=== PATIENT | female | born 1980 | race Caucasian/White ===

== ENCOUNTER 2024-04-20 09:58 | Inpatient (IN) ==
[2024-04-20 10:54] LABS: Basophils # (auto) 0.06 K/uL (0.00-0.20); Basophils % (auto) 0.3 %; Hematocrit (blood only) 33.2 % (37.0-47.0); Hemoglobin 11.3 g/dl (12.0-16.0); Immature Granulocytes % (auto) 0.9 %; Lymphocytes # (auto) 2.07 K/uL (1.20-3.40); Mean Corpuscular Hemoglobin 30.2 pg (25.0-34.0); Mean Corpuscular Volume 88.8 fL (80.0-100.0); Mean Platelet Volume 9.7 fL (9.4-12.4); Monocytes # (auto) 1.16 K/uL (0.11-0.59); Monocytes % (auto) 5.1 %; Neutrophils # (auto) 19.47 K/uL (1.40-6.50); Neutrophils % (auto) 84.7 %; Platelet Count 690 K/uL (130-400); RDW Coefficient of Variation 13.2 % (11.5-14.5); RDW Standard Deviation 42.7 fL (36.4-46.3); Red Blood Count 3.74 M/uL (4.20-5.40); White Blood Count 22.96 K/ul (4.8-10.8)
[2024-04-20 11:15] LABS: Albumin Globulin Ratio 0.9 (0.9-2); Albumin Level 3.5 gm/dl (3.4-5.0); BUN Creatinine Ratio 14.3 (10-20); Bilirubin,Total 0.9 mg/dl (0.2-1.0); Creatinine Clr Calc Pharmacy 102.6 ml/min; Globulin 3.7 gm/dl (2.5-4.0); Potassium 3.4 mmol/L (3.5-5.1); Total Protein 7.2 gm/dl (6.0-8.3)
--- NOTE | 2024-04-20 11:21 | Emergency Department Note ---
Impression & Plan Pyelonephritis, Pericardial effusion, Hypokalemia, Multiple sclerosis ED Provider Note CHIEF COMPLAINT: "I don't feel good" HISTORY OF PRESENT ILLNESS: This 44-year-old female patient presents to the emergency department via private vehicle for evaluation of "I do not feel good". The patient states that for about a week, she has been feeling unwell. She states she has had a runny nose, body aches, chills, and a headache. She denies neck stiffness, but states the back of her neck feels very warm. She states that she has been unable to get warm today. She does report "MS symptoms" which she describes as bilateral arm and leg tingling and numbness. She states the symptoms have been chronic in nature. She denies any new MS symptoms. She states she has been very tired. She denies any cough or congestion. She does feel somewhat short of breath. She states she has been dizzy and lightheaded. No chest pain. She states she has some generalized abdominal cramping and developed vomiting yesterday. While yesterday was the first episode of vomiting she had experienced, there has been nausea throughout the past week. LMP was 2 weeks ago. Patient has a history of overactive bladder and states she is not currently taking her medication for this, but denies any other associated urinary frequency, hesitancy, dysuria, hematuria. Patient has been taking OTC cold medication without relief. Most recent dose was at midnight last night. She states she is also taking her Seroquel, Flexeril, and Lyrica. History provided by: Patient REVIEW OF SYSTEMS: A 10 system review of systems was performed with positives and pertinent negatives listed in the history of present illness. All other systems were reviewed and are negative. ALLERGIES: Haldol, aspirin, glucocorticoids, NSAIDs PHYSICAL EXAM: VITALS: Vitals are noted on the nurse's note and reviewed by myself. GENERAL: This is a 44-year-old female, in no acute distress, nondiaphoretic, well-developed well-nourished. SKIN: The skin was without rashes, erythema, edema, or bruising. There is no tenting of the skin. Capillary refill less than 2 seconds. HEAD: Normocephalic atraumatic. EARS: External auditory canals clear, tympanic membranes pearly cooper without erythema or effusion bilaterally. No hemotympanum. Negative saucedo sign EYES: Pupils equal round and reactive to light and accommodation. Conjunctivae without injection, sclerae without icterus. Extraocular movements intact. NOSE: Patent, turbinates without inflammation or discharge. No sinus tenderness. MOUTH: Mucous membranes moist. Tonsils are not enlarged. Pharynx without erythema or exudate. Uvula midline. Airway patent. Tongue does not deviate. NECK: Supple without nuchal rigidity. No lymphadenopathy. Cervical spine is nontender. No JVD. HEART: Regular rate and rhythm without murmurs gallops or rubs. LUNGS: Clear to auscultation bilaterally without wheezes, rales or rhonchi. No retractions or accessory muscle use. ABDOMEN: Positive bowel sounds x 4. Soft, nontender, without masses or organomegaly. Krishnamurthy sign negative. No guarding or rebound tenderness. MUSCULOSKELETAL: No muscle atrophy, erythema, or edema noted. Full range of motion without joint tenderness in all extremities. No tenderness to palpation. Normal gait. Strength 5/5 throughout. NEURO: Patient was alert and oriented to person place and time. No focal neurological deficits. An order was placed for continuous relationship specialist. The monitor showed a normal sinus rhythm at a ventricular rate of 98 bpm, per my interpretation. Imaging as interpreted by myself and the radiologist revealed acute bilateral pyelonephritis, with radiologist interpretation as above. I agree with the radiologist's findings as based upon my independent interpretation. EMERGENCY DEPARTMENT COURSE: The patient was seen and evaluated as above. The patient presents with nonspecific generalized illness. She has had a mild runny nose. She describes a fullness sensation when she breathes as well as some generalized abdominal discomfort. She has been nauseated but just started vomiting yesterday. She is afebrile but has had chills. Upon arrival, she was tachycardic and hypotensive. IV access was obtained, labs were drawn. Initial orders were placed by triage nursing staff. Additional orders were added by me once I evaluated the patient. Patient was medicated with IV fluids, Zofran. Labs reviewed. There is a concerning leukocytosis of 23,000. No the hemoglobin 11.3 and hematocrit 33.2. Platelet count is elevated at 690,000. Renal, hepatic function without significant concerning abnormality. Troponin 6.9. hCG negative. Procalcitonin 0.42. Urinalysis concerning for infection with blood, nitrites, leukocyte esterase, white blood cells, and bacteria. Respiratory bio fire testing is negative. Urine drug screen is pending at this time. Chest x-ray was completed and reviewed by myself and radiologist as noted. No acute findings. I discussed the case with my attending physician. Given the patient's complaints as well as the leukocytosis and unclear source of her illness, we did elect to perform imaging. The patient is complaining of a headache and in her neck. She is also complaining of a heavy sensation when she plays as well as some generalized abdominal pain. CT scan of the head, chest, abdomen, and pelvis were completed as noted. These were reviewed by myself radiologist and were concerning for acute pyelonephritis bilaterally. Patient was reassessed. She is continuing to complain of nausea and dry heaving. She was medicated with IV Zofran. The patient's blood pressure and heart rate have improved while in the emergency department after administration of IV fluids. Given the patient's presentation as well as findings of bilateral pyelonephritis and trace pericardial effusion/pleural effusions, I do recommend inpatient care. I discussed case with the airborne weapons technical manager. I discussed the case with KARLY Hendrickson with [facility] Hospitalist. She did agree to evaluate the patient for inpatient care. Please see hospitalist dictation regarding ongoing management care of this patient. Case was discussed with the attending physician. This visit is during a period of high volume and high acuity in the emergency department. I attest that I have personally reviewed the patient medication list. I attest that I have reviewed the patient's blood pressure and it was found to be low-normal. GCS: 15 In the evaluation and treatment of this patient the following differential diagnoses were entertained: Viral syndrome, otitis, pharyngitis, pneumonia, influenza, meningitis, urinary tract infection, sepsis, bacteremia, as well as other pathologies. The chart was completed utilizing [employer] Speech voice recognition software. Grammatical errors, random word insertions, pronoun errors, and incomplete sentences are an occasional consequence of this system due to software limitations, ambient noise, and hardware issues. Any formal questions or concerns about the content, text, or information contained within the body of this dictation should be directly addressed to the provider for clarification. Past Med/Surg History Problem List (Updated 04/20/24 @ 14:39 by Talia Hickman PA-C) Pericardial effusion (Acute) Multiple sclerosis (Acute) Pyelonephritis (Acute) Hypokalemia (Acute) Concern about STI in female without diagnosis (Acute) Medical History Transverse myelitis Hx of folliculitis Hx of drug abuse Schizophrenia in remission Cellulitis of abdominal wall Encounter for insertion of mirena IUD Hx of lipoma Tendinitis of left hand Degenerative disc disease Pinched nerve in neck Overactive bladder Nightmares Depression Anxiety Social History Smoking Status: Current every day smoker Tobacco Type: Cigarettes Cigarettes Per Day: 10; Hx Alcohol Use: No Hx Substance Use: Yes Prescribed Medications: Marijuana Preferred Language: Irish Communication Ability: Effective Beliefs That Will Affect Care: None Current Living Situation: Alone Feels Safe at Home: Yes Assistive Devices: None Allergies Allergies Allergy/AdvReac Type Severity Reaction Status Date / Time haloperidol [From Haldol] Allergy Severe Swelling Verified 12/02/23 18:54 of Lip/Tongue/Throat aspirin AdvReac Intermediate RINGING IN Verified 12/02/23 18:54 EARS Corticosteroids AdvReac Intermediate INJECTED Verified 12/02/23 18:54 (Glucocorticoids) JOINT BECAME SEVERELY SWOLLEN & STIFF NSAIDS (Non-Steroidal AdvReac Intermediate Redness of Verified 12/02/23 18:56 Anti-Inflamma Skin "FELT LIKE I WAS ON FIRE" Home Meds Home Medications Medication Instructions Recorded Confirmed acetaminophen 500 mg tablet 1,000 mg PO Q6H PRN Pain 05/19/19 12/02/23 (Tylenol Extra Strength) cetirizine 10 mg tablet (Zyrtec) 10 mg PO DAILY 05/19/19 12/02/23 docusate sodium 100 mg capsule 100 mg PO BID Constipation 05/19/19 12/02/23 ferrous sulfate 325 mg (65 mg 325 mg PO BID 05/19/19 12/02/23 iron) tablet (Iron (ferrous sulfate)) fesoterodine 8 mg tablet,extended 8 mg PO QAM 05/19/19 12/02/23 release 24 hr (Toviaz) fluticasone propionate 50 2 spray intranasal DAILY 05/19/19 12/02/23 mcg/actuation nasal spray,suspension (Flonase Allergy Relief) quetiapine 200 mg tablet (Seroquel) 200 mg PO HS 05/19/19 12/02/23 bisacodyl 5 mg tablet 5 mg PO DAILY PRN Constipation 05/23/23 12/02/23 cholecalciferol (vitamin D3) 50 50 mcg PO DAILY 05/23/23 12/02/23 mcg (2,000 unit) capsule (Vitamin D3) clindamycin phosphate 1 % topical 1 applic topical QAM 05/23/23 12/02/23 gel cyclobenzaprine 10 mg tablet 10 mg PO TID MUSCLE SPASMS 05/23/23 12/02/23 hydroxyzine HCl 25 mg tablet 25 mg PO DAILY PRN NEEDED 05/23/23 12/02/23 ibuprofen 600 mg tablet 600 mg PO Q8H PRN Pain 05/23/23 12/02/23 levonorgestrel 21 mcg/24 hr (up to 21 mcg intrauterine CONTINOUS 05/23/23 12/02/23 8 years) 52 mg intrauterine device (Mirena) ondansetron HCl 4 mg tablet 4 mg PO Q6H PRN NAUSEA/VOMITING 05/23/23 12/02/23 tretinoin 0.025 % topical cream 1 applic topical HS 05/23/23 12/02/23 (Avita) polyethylene glycol 3350 17 17 g PO DAILY PRN Constipation 12/02/23 12/02/23 gram/dose oral powder (Miralax) Previous Rx's Medication Instructions Recorded cyclobenzaprine 10 mg tablet 10 mg PO TID #30 tabs 03/10/24 hydroxyzine HCl 50 mg tablet 50 mg PO BID PRN itching #20 tabs 03/10/24 pregabalin 100 mg capsule 100 mg PO BID #20 caps 03/10/24 quetiapine 200 mg tablet 200 mg PO HS #10 tabs 03/10/24 Results & Data (ED) Vital Signs Vital Signs - 24 hr 04/20/24 10:07 04/20/24 10:08 04/20/24 10:34 Temperature 37 C Temperature Source Oral Pulse Rate 95 H 95 H Pulse Rate [Apical] 98 H Respiratory Rate 20 18 Respiratory Effort / Characteristics Non-Labored Spontaneous Non-Labored Spontaneous Respiratory Depth Normal Normal Blood Pressure 97/75 L Blood Pressure [Left Arm] 97/75 L Blood Pressure Mean 82 Blood Pressure Mean [Left Arm] 82 Blood Pressure Position Sitting Blood Pressure Position [Left Arm] Sitting Pulse Oximetry 97 98 Oxygen Delivery Method Room Air Room Air Sepsis Recent Fever Within 48 Hours Yes Sepsis New/Unexplained Change in Mental Status No Sepsis Action Taken by Nursing No Action Required 04/20/24 12:55 04/20/24 14:05 Temperature Temperature Source Pulse Rate 93 H Pulse Rate [Apical] 91 H Respiratory Rate 12 Respiratory Effort / Characteristics Non-Labored Respiratory Depth Normal Blood Pressure Blood Pressure [Left Arm] 104/61 Blood Pressure Mean Blood Pressure Mean [Left Arm] 75 Blood Pressure Position Blood Pressure Position [Left Arm] Pulse Oximetry 95 Oxygen Delivery Method Room Air Sepsis Recent Fever Within 48 Hours Sepsis New/Unexplained Change in Mental Status Sepsis Action Taken by Nursing Laboratory Data 04/20/24 10:20 04/20/24 10:20 Lab Results 04/20/24 04/20/24 04/20/24 Range/Units 10:07 10:20 11:48 WBC 22.96 H (4.8-10.8) K/ul RBC 3.74 L (4.20-5.40) M/uL Hgb 11.3 L (12.0-16.0) g/dl Hct 33.2 L (37.0-47.0) % MCV 88.8 (80.0-100.0) fL MCH 30.2 (25.0-34.0) pg MCHC 34.0 (32.0-36.0) g/dL RDW Std Deviation 42.7 (36.4-46.3) fL RDW Coeff of Renee 13.2 (11.5-14.5) % Plt Count 690 H (130-400) K/uL MPV 9.7 (9.4-12.4) fL Immature Gran % (Auto) 0.9 % Neut % (Auto) 84.7 % Lymph % (Auto) 9.0 % Ness % (Auto) 5.1 % Eos % (Auto) 0.0 % Baso % (Auto) 0.3 % Neut # (Auto) 19.47 H (1.40-6.50) K/uL Lymph # (Auto) 2.07 (1.20-3.40) K/uL Ness # (Auto) 1.16 H (0.11-0.59) K/uL Eos # (Auto) 0.00 (0.00-0.50) K/uL Baso # (Auto) 0.06 (0.00-0.20) K/uL Immature Gran # (Auto) 0.20 (0.01-0.20) K/uL APTT (21-31) Seconds PTT Ratio Sodium 133 L (136-145) mmol/L Potassium 3.4 L (3.5-5.1) mmol/L Chloride 98 (98-107) mmol/L Carbon Dioxide 22 (21-32) mmol/L Anion Gap 13 H (3-11) BUN 9 (6-23) mg/dl Creatinine 0.63 (0.6-1.2) mg/dl Est Cr Clr Drug Dosing 102.6 ml/min eGFR 110.73 BUN/Creatinine Ratio 14.3 (10-20) Glucose 92 (70-99(Fasting)) mg/dl Lactate (0.4-2.0) mmol/L Calcium 9.0 (8.6-10.3) mg/dl Magnesium (1.7-2.4) mg/dl Total Bilirubin 0.9 (0.2-1.0) mg/dl AST 14 (13-39) U/L ALT 26 (7-52) U/L Alkaline Phosphatase 185 H (34-104) U/L Troponin I High Sens (0-14) pg/ml Total Protein 7.2 (6.0-8.3) gm/dl Albumin 3.5 (3.4-5.0) gm/dl Globulin 3.7 (2.5-4.0) gm/dl Albumin/Globulin Ratio 0.9 (0.9-2) Procalcitonin (0-0.5) ng/ml HCG, Qual (Negative) Urine Color Dark Yellow Urine Appearance Turbid A (Clear) Urine pH 6.0 (4.5-7.5) Ur Specific Alsey 1.017 (1.000-1.030) Urine Protein 2+ H (Negative) Urine Glucose (UA) Negative (Negative) Urine Ketones 3+ H (Negative) Urine Blood Trace H (Negative) Urine Nitrite Positive A (Negative) Urine Bilirubin 1+ H (Negative) Urine Urobilinogen Positive H (Negative) Ur Leukocyte Esterase 2+ H (Negative) Urine WBC (Auto) >50 H (0-5) /hpf Urine RBC (Auto) 11-20 H (0-2) /hpf U Hyaline Cast (Auto) 3-5 H (0-2) /lpf U Epithel Cells (Auto) >20 H (0-2) /hpf Urine Bacteria (Auto) 4+ H (None Seen) Adenovirus (PCR) Not Detected (NotDetected) B. pertussis DNA (PCR) Not Detected (NotDetected) B.parapertussis DNA PCR Not Detected (NotDetected) C. pneumoniae DNA (PCR) Not Detected (NotDetected) Coronavirus OC43 (PCR) Not Detected (NotDetected) Coronavirus HKU1 (PCR) Not Detected (NotDetected) Coronavirus 229E (PCR) Not Detected (NotDetected) SARS-CoV-2 (PCR) Not Detected (NotDetected) Coronavirus NL63 (PCR) Not Detected (NotDetected) Human Metapneumovir PCR Not Detected (NotDetected) Influenza Type A (PCR) Not Detected (NotDetected) Influenza Type B (PCR) Not Detected (NotDetected) M. pneumoniae (PCR) Not Detected (NotDetected) Parainfluenza 1 (PCR) Not Detected (NotDetected) Parainfluenza 2 (PCR) Not Detected (NotDetected) Parainfluenza 3 (PCR) Not Detected (NotDetected) Parainfluenza 4 (PCR) Not Detected (NotDetected) RSV (PCR) Not Detected (NotDetected) Entero/Rhino (PCR) Not Detected (NotDetected) 04/20/24 04/20/24 Range/Units 11:52 11:56 WBC (4.8-10.8) K/ul RBC (4.20-5.40) M/uL Hgb (12.0-16.0) g/dl Hct (37.0-47.0) % MCV (80.0-100.0) fL MCH (25.0-34.0) pg MCHC (32.0-36.0) g/dL RDW Std Deviation (36.4-46.3) fL RDW Coeff of Renee (11.5-14.5) % Plt Count (130-400) K/uL MPV (9.4-12.4) fL Immature Gran % (Auto) % Neut % (Auto) % Lymph % (Auto) % Ness % (Auto) % Eos % (Auto) % Baso % (Auto) % Neut # (Auto) (1.40-6.50) K/uL Lymph # (Auto) (1.20-3.40) K/uL Ness # (Auto) (0.11-0.59) K/uL Eos # (Auto) (0.00-0.50) K/uL Baso # (Auto) (0.00-0.20) K/uL Immature Gran # (Auto) (0.01-0.20) K/uL APTT 35 H (21-31) Seconds PTT Ratio 1.3 Sodium (136-145) mmol/L Potassium (3.5-5.1) mmol/L Chloride (98-107) mmol/L Carbon Dioxide (21-32) mmol/L Anion Gap (3-11) BUN (6-23) mg/dl Creatinine (0.6-1.2) mg/dl Est Cr Clr Drug Dosing ml/min eGFR BUN/Creatinine Ratio (10-20) Glucose (70-99(Fasting)) mg/dl Lactate 1.3 (0.4-2.0) mmol/L Calcium (8.6-10.3) mg/dl Magnesium 1.8 (1.7-2.4) mg/dl Total Bilirubin (0.2-1.0) mg/dl AST (13-39) U/L ALT (7-52) U/L Alkaline Phosphatase (34-104) U/L Troponin I High Sens 6.9 (0-14) pg/ml Total Protein (6.0-8.3) gm/dl Albumin (3.4-5.0) gm/dl Globulin (2.5-4.0) gm/dl Albumin/Globulin Ratio (0.9-2) Procalcitonin 0.32 (0-0.5) ng/ml HCG, Qual Negative (Negative) Urine Color Urine Appearance (Clear) Urine pH (4.5-7.5) Ur Specific [place]sey (1.000-1.030) Urine Protein (Negative) Urine Glucose (UA) (Negative) Urine Ketones (Negative) Urine Blood (Negative) Urine Nitrite (Negative) Urine Bilirubin (Negative) Urine Urobilinogen (Negative) Ur Leukocyte Esterase (Negative) Urine WBC (Auto) (0-5) /hpf Urine RBC (Auto) (0-2) /hpf U Hyaline Cast (Auto) (0-2) /lpf U Epithel Cells (Auto) (0-2) /hpf Urine Bacteria (Auto) (None Seen) Adenovirus (PCR) (NotDetected) B. pertussis DNA (PCR) (NotDetected) B.parapertussis DNA PCR (NotDetected) C. pneumoniae DNA (PCR) (NotDetected) Coronavirus OC43 (PCR) (NotDetected) Coronavirus HKU1 (PCR) (NotDetected) Coronavirus 229E (PCR) (NotDetected) SARS-CoV-2 (PCR) (NotDetected) Coronavirus NL63 (PCR) (NotDetected) Human Metapneumovir PCR (NotDetected) Influenza Type A (PCR) (NotDetected) Influenza Type B (PCR) (NotDetected) M. pneumoniae (PCR) (NotDetected) Parainfluenza 1 (PCR) (NotDetected) Parainfluenza 2 (PCR) (NotDetected) Parainfluenza 3 (PCR) (NotDetected) Parainfluenza 4 (PCR) (NotDetected) RSV (PCR) (NotDetected) Entero/Rhino (PCR) (NotDetected) Administered Medications Discontinued Medications Sodium Chloride (Nss) 1,000 mls @ 999 mls/hr IV .Q1H1M ONE Stop: 04/20/24 12:16 Last Infusion: 04/20/24 14:12 Dose: Infused Documented By: Admin: 04/20/24 11:51 Dose: 999 mls/hr Documented By: ALEKS Cefepime HCl (Maxipime 2000mg) 2,000 mg in 20 mls @ 5 mls/min IV NOW STA; Protocol Stop: 04/20/24 11:50 Last Admin: 04/20/24 13:02 Dose: 5 mls/min Documented By: ALEKS Ioversol (Optiray 320 125ml) 120 ml IV ONCE ONE Stop: 12/16/24 12:28 Last Admin: 04/20/24 12:27 Dose: 120 ml Documented By: WANG Ondansetron HCl (Ondansetron Inj 2 Mg/Ml 2 Ml Vial) 4 mg IV NOW STA Stop: 04/20/24 11:23 Last Admin: 04/20/24 11:52 Dose: 4 mg Documented By: ALEKS Ondansetron HCl (Ondansetron Inj 2 Mg/Ml 2 Ml Vial) 4 mg IV NOW STA Stop: 04/20/24 13:18 Last Admin: 04/20/24 13:21 Dose: 4 mg Documented By: ALEKS Imaging Data Radiologist's Impression: Chest X-Ray 04/20/24 10:49 XR chest 1V portable HISTORY: 44 years-old Female pain with deep breathing, illness COMPARISON: 03/10/2024 TECHNIQUE: AP view the chest FINDINGS: Cardiac mediastinal and hilar silhouettes are within normal limits. No pneumothorax, pleural effusion or airspace consolidation. Bones appear grossly intact. Cervical spinal fusion hardware. IMPRESSION: No acute process. ACT 112: Negative or not required by law. The above report was generated using voice recognition software. It may contain grammatical, syntax or spelling errors. Electronically signed by: Michael Crespo M.D. 04/20/2024 11:23 AM Abdomen/Pelvis CT 04/20/24 11:37 CT OF THE ABDOMEN AND PELVIS WITH CONTRAST CLINICAL HISTORY: Generalized abdominal pain, illness. COMPARISON STUDY: CT of the abdomen pelvis December 02, 2023. TECHNIQUE: Following IV administration of 120 mL of Optiray, axial images of the abdomen and pelvis were obtained from the lung bases to the proximal femurs. Images were reviewed in the axial, sagittal, and coronal planes. IV contrast was administered without complication. Automated exposure control was utilized for the study. A dose lowering technique was utilized adhering to the principles of ALARA. CT DOSE: 3375.82 mGy.cm FINDINGS: There are trace bilateral pleural effusions. No pneumatosis, free air or portal venous gas is present. There are no hepatic lesions. There is no biliary or pancreatic ductal dilatation. Spleen, adrenal glands and pancreas are unremarkable. There is no hydronephrosis. Heterogeneous enhancement of both kidneys with striated nephrograms is noted. There is no renal fluid collection. Intrauterine device is in place. Caliber and wall thickness of small and large bowel are normal. The appendix is normal. A small amount of fluid within the pelvis is present. Low-attenuation right adnexal lesions may reflect ovarian cysts or follicles. Major vasculature is patent. There is mild bladder wall thickening. No ureteral calculi are identified. Sensitivity for detection of renal calculus diminished given excreted contrast. IMPRESSION: 1. Heterogeneous enhancement of the kidneys with striated nephrograms. The findings suggest acute bilateral pyelonephritis. No renal abscess. No hydronephrosis. Bladder wall thickening suggestive of cystitis. 2. Small amount of fluid within the pelvis. Low-attenuation right adnexal lesions which favor ovarian cysts or follicles. 3. No bowel obstruction. Normal appendix. ACT 112: Negative or not required by law. Electronically signed by: Mau Gama M.D. 04/20/2024 1:06 PM Chest CTA 04/20/24 11:37 CT angio chest PE protocol HISTORY: 44 years-old Female with sob, illness, tachycardia. Acute shortness of breath. TECHNIQUE: Multiple CTA images of the chest were obtained after the intravenous administration of 120 ml Optiray. Coronal and sagittal MIPS were obtained from the axial data set and were submitted for review. All measurements were obtained according to NASCET criteria. A dose lowering technique was utilized adhering to the principles of ALARA. COMPARISON: Chest CT 12/02/2023 FINDINGS: CTA: Trace pericardial effusion. The heart is normal in size. Unremarkable thoracic aorta and pulmonary artery. No pulmonary emboli identified. CT CHEST: Unremarkable thyroid. Trace pleural effusions. No lymphadenopathy. Mild bronchial wall thickening. No airspace consolidation typical for pneumonia. No acute upper abdominal abnormality. No acute fracture. There is questioned perinephric stranding of the left kidney. IMPRESSION: 1. No pulmonary emboli. 2. Trace pericardial and pleural effusions. 3. No lymphadenopathy or airspace consolidation typical for pneumonia. 4. Partially imaged equivocal left perinephric stranding. Correlate with urinalysis. ACT 112: Negative or not required by law. The above report was generated using voice recognition software. It may contain grammatical, syntax or spelling errors. Electronically signed by: Michael Crespo M.D. 04/20/2024 1:[address] 04/20/24 11:37 CT head/brain wo con CLINICAL HISTORY: 44 years-old Female with headache, illness. Acute headache with weakness TECHNIQUE: Multiple axial CT images of the head were obtained without contrast. A dose lowering technique was utilized adhering to the principles of ALARA. COMPARISON: 03/10/2024 FINDINGS: No acute intracranial hemorrhage, midline shift, intracranial mass, hydrocephalus, territorial ischemia or abnormal extra-axial collection. The calvarium is intact. The paranasal sinuses, mastoid air cells, and middle ear cavities are clear. IMPRESSION: No acute intracranial abnormality. ACT 112: Negative or not required by law. The above report was generated using voice recognition software. It may contain grammatical, syntax or spelling errors. Electronically signed by: Michael Crespo M.D. 04/20/2024 1:22 PM Discharge Plan Visit Data Chief Complaint: Illness Stated Complaint: vomitting, fever, MS ED Provider: Clarita Garcia ED Midlevel Provider: Talia Hickman Discharge Problem: Pyelonephritis, Pericardial effusion, Hypokalemia, Multiple sclerosis Patient Disposition: Admitted As Inpatient Forms Stand Alone Forms: [facility] Prescriptions Prescriptions: No Action cetirizine [Zyrtec] 10 mg Tablet 10 mg PO DAILY quetiapine [Seroquel] 200 mg Tablet 200 mg PO HS ferrous sulfate [Iron (ferrous sulfate)] 325 mg (65 mg iron) Tablet 325 mg PO BID docusate sodium 100 mg Capsule 100 mg PO BID fluticasone propionate [Flonase Allergy Relief] 50 mcg/actuation [place],Suspension 2 spray INTRANASAL DAILY fesoterodine [Toviaz] 8 mg Tablet Extended Release 24 Hr 8 mg PO QAM acetaminophen [Tylenol Extra Strength] 500 mg Tablet 1,000 mg PO Q6H PRN (Reason: Pain) cyclobenzaprine [Flexeril] 10 mg Tablet 10 mg PO TID Mirena 21 mcg/24 hours (8 yrs) 52 mg Intrauterine Device 21 mcg INTRAUTERINE CONTINOUS tretinoin [Avita] 0.025 % cream 1 applic TOPICAL HS Rx Instructions: APPLY TO FACE, CHEST, AND UPPER BACK ondansetron HCl 4 mg tablet 4 mg PO Q6H PRN (Reason: NAUSEA/VOMITING) clindamycin phosphate 1 % gel 1 applic TOPICAL QAM hydroxyzine HCl 25 mg tablet 25 mg PO DAILY PRN (Reason: NEEDED) ibuprofen 600 mg Tablet 600 mg PO Q8H PRN (Reason: Pain) bisacodyl 5 mg Tablet 5 mg PO DAILY PRN (Reason: Constipation) cholecalciferol (vitamin D3) [Vitamin D3] 50 mcg (2,000 unit) Capsule 50 mcg PO DAILY hydroxyzine HCl 50 mg tablet 50 mg PO BID PRN (Reason: itching) Qty: 20 0RF cyclobenzaprine 10 mg tablet 10 mg PO TID Qty: 30 0RF pregabalin 100 mg capsule 100 mg PO BID Qty: 20 0RF quetiapine 200 mg tablet 200 mg PO HS Qty: 10 0RF polyethylene glycol 3350 [Miralax] 17 gram/dose Powder 17 g PO DAILY PRN (Reason: Constipation) Referrals Referrals: Cecilia Vasquez CRNP [Primary Care Provider] -
--- NOTE | 2024-04-20 11:24 | XRay Report ---
XR chest 1V portable HISTORY: 44 years-old Female pain with deep breathing, illness COMPARISON: 03/10/2024 TECHNIQUE: AP view the chest FINDINGS: Cardiac mediastinal and hilar silhouettes are within normal limits. No pneumothorax, pleural effusion or airspace consolidation. Bones appear grossly intact. Cervical spinal fusion hardware. IMPRESSION: No acute process. ACT 112: Negative or not required by law. The above report was generated using voice recognition software. It may contain grammatical, syntax o r spelling errors. Electronically signed by: Michael Crespo M.D. 04/20/2024 11:23 AM
[2024-04-20 11:38] LABS: Adenovirus PCR Not Detected (NotDetected); Bordetella parapertussis PCR Not Detected (NotDetected); Bordetella pertussis PCR Not Detected (NotDetected); Chlamydia pneumoniae PCR Not Detected (NotDetected); Coronavirus 229E PCR Not Detected (NotDetected); Coronavirus CoV-2 (COVID19)PCR Not Detected (NotDetected); Coronavirus HKU1 PCR Not Detected (NotDetected); Coronavirus NL63 PCR Not Detected (NotDetected); Coronavirus OC43PCR Not Detected (NotDetected); Human Metapneumovirus PCR Not Detected (NotDetected); Influenza A PCR Not Detected (NotDetected); Influenza B PCR Not Detected (NotDetected); Mycoplasma pneumoniae PCR Not Detected (NotDetected); Parainfluenza Virus 1 PCR Not Detected (NotDetected); Parainfluenza Virus 2 PCR Not Detected (NotDetected); Parainfluenza Virus 3 PCR Not Detected (NotDetected); Parainfluenza Virus 4 PCR Not Detected (NotDetected); Respiratory Syncytial VirusPCR Not Detected (NotDetected); Rhinovirus/Enterovirus PCR Not Detected (NotDetected)
[2024-04-20] MEDS: SODIUM CHLORIDE 0.9% 1,000 ML IV ONE (11:51)
[2024-04-20] MEDS: ONDANSETRON INJ 2 MG/ML 2 ML VIAL IV STA ×2 (11:52→13:21)
[2024-04-20] MEDS: OPTIRAY 320 125ml IV ONE (12:27)
[2024-04-20 12:35] LABS: Magnesium 1.8 mg/dl (1.7-2.4)
[2024-04-20 12:38] LABS: Pregnancy Test, Serum Negative (Negative)
[2024-04-20 12:42] LABS: Appearance Urine Turbid (Clear); Bacteria Urine Automated 4+ (None Seen); Bilirubin Urine 1+ (Negative); Blood Urine Trace (Negative); Color Urine Dark Yellow; Epithelial Cell Urine Auto >20 /hpf (0-2); Glucose Urine UA Negative (Negative); Ketones Urine 3+ (Negative); Leukocyte Esterase Urine 2+ (Negative); Nitrite Urine Positive (Negative); Protein Urine 2+ (Negative); Specific Gravity Urine 1.017 (1.000-1.030); Urobilinogen Urine Positive (Negative); WBC Urine Automated >50 /hpf (0-5)
[2024-04-20 12:42] LABS: Troponin I High Sensitivity 6.9 pg/ml (0-14)
[2024-04-20 12:51] LABS: Partial Thromboplastin Ratio 1.3; Partial Thromboplastin Time 35 Seconds (21-31)
[2024-04-20] MEDS: CEFEPIME 2000MG 2,000 MG/20 ML SYR IV STA (13:02)
--- NOTE | 2024-04-20 13:09 | CT Scan Report ---
CT OF THE ABDOMEN AND PELVIS WITH CONTRAST CLINICAL HISTORY: Generalized abdominal pain, illness. COMPARISON STUDY: CT of the abdomen pelvis December 02, 2023. TECHNIQUE: Following IV administration of 120 mL of Optiray, axial images of the abdomen and pelvis w ere obtained from the lung bases to the proximal femurs. Images were reviewed in the axial, sagittal, and coronal planes. IV contrast was administered without complication. Automated exposure control w as utilized for the study. A dose lowering technique was utilized adhering to the principles of ANGELO Quezada. CT DOSE: 3375.82 mGy.cm FINDINGS: There are trace bilateral pleural effusions. No pneumatosis, free air or portal venous gas is present. There are no hepatic lesions. There is no biliary or pancreatic ductal dilatation. Spleen , adrenal glands and pancreas are unremarkable. There is no hydronephrosis. Heterogeneous enhancement of both kidneys with striated nephrograms is noted. There is no renal fluid collection. Intrauterine device is in place. Caliber and wall thickness of small and large bowel are normal. The appendix is normal. A small amount of fluid within the pelvis is present. Low-attenuation right adnexal lesions m ay reflect ovarian cysts or follicles. Major vasculature is patent. There is mild bladder wall thicke bonnie. No ureteral calculi are identified. Sensitivity for detection of renal calculus diminished give n excreted contrast. IMPRESSION: 1. Heterogeneous enhancement of the kidneys with striated nephrograms. The findings suggest acute olman ateral pyelonephritis. No renal abscess. No hydronephrosis. Bladder wall thickening suggestive of cys titis. 2. Small amount of fluid within the pelvis. Low-attenuation right adnexal lesions which favor ovarian cysts or follicles. 3. No bowel obstruction. Normal appendix. ACT 112: Negative or not required by law. Electronically signed by: Mau Gama M.D. 04/20/2024 1:06 PM
--- NOTE | 2024-04-20 13:23 | CT Scan Report ---
CT head/brain wo con CLINICAL HISTORY: 44 years-old Female with headache, illness. Acute headache with weakness TECHNIQUE: Multiple axial CT images of the head were obtained without contrast. A dose lowering tech nique was utilized adhering to the principles of ALARA. COMPARISON: 03/10/2024 FINDINGS: No acute intracranial hemorrhage, midline shift, intracranial mass, hydrocephalus, territorial ischem ia or abnormal extra-axial collection. The calvarium is intact. The paranasal sinuses, mastoid air cells, and middle ear cavities are clear . IMPRESSION: No acute intracranial abnormality. ACT 112: Negative or not required by law. The above report was generated using voice recognition software. It may contain grammatical, syntax o r spelling errors. Electronically signed by: Michael Crespo M.D. 04/20/2024 1:22 PM
--- NOTE | 2024-04-20 13:40 | CT Scan Report ---
CT angio chest PE protocol HISTORY: 44 years-old Female with sob, illness, tachycardia. Acute shortness of breath. TECHNIQUE: Multiple CTA images of the chest were obtained after the intravenous administration of 120 ml Optiray. Coronal and sagittal MIPS were obtained from the axial data set and were submitted for review. All measurements were obtained according to NASCET criteria. A dose lowering technique was u tilized adhering to the principles of ALARA. COMPARISON: Chest CT 12/02/2023 FINDINGS: CTA: Trace pericardial effusion. The heart is normal in size. Unremarkable thoracic aorta and pulmonary ar miri. No pulmonary emboli identified. CT CHEST: Unremarkable thyroid. Trace pleural effusions. No lymphadenopathy. Mild bronchial wall thickening. No airspace consolidation typical for pneumonia. No acute upper abdominal abnormality. No acute fractur e. There is questioned perinephric stranding of the left kidney. IMPRESSION: 1. No pulmonary emboli. 2. Trace pericardial and pleural effusions. 3. No lymphadenopathy or airspace consolidation typical for pneumonia. 4. Partially imaged equivocal left perinephric stranding. Correlate with urinalysis. ACT 112: Negative or not required by law. The above report was generated using voice recognition software. It may contain grammatical, syntax o r spelling errors. Electronically signed by: Michael Crespo M.D. 04/20/2024 1:38 PM
--- NOTE | 2024-04-20 14:05 | History & Physical Report ---
Date of Service April 20, 2024 Assessment & Plan (1) Pyelonephritis: (2) Pericardial effusion: (3) Hypokalemia: (4) Multiple sclerosis: (5) Depression: (6) Anxiety: Plan Ms. Harvey is a 44 year old F that presented to the ED with complaints of not feeling well since last Sat. She reports having a fever on and off, without an actual recorded temperature, and has not beenable to keep anything down without much of an appetite. She reports feeling really thirsty and her stomach feels "tight" generally throughout her whole abdomen. She reports polyuria that started this past Saturday. Head CT negative for ICH, midline shift, or SDH. Chest CTA was performed without PE, but incidentally found pericardial effusion and pleural effusion. No lymphadenopathy or signs of PNA were noted. CTAP suggestive of acute bilateral pyelonephritis. No renal abscess. No hydronephrosis. Bladder wall thickening suggestive of cystitis. A small amount of fluid within the pelvis. Low-attenuation right adnexal lesions which favor ovarian cysts or follicles.No bowel obstruction. Normal appendix. Leukocytosis noted 22.96; neutrophil count 19.47, hypokalemia 3.4. Lactate, Mg+. HCG negative. Reports at risk for STI; outlined below. Will cover urine with Cefepime based on previous urine culture and sensitivities. Will obtain ECHO, vaginal/rectal swab, replace K+ and provide supportive/pain control with insight from Urology. Pyelonephritis: Acute Leukocytosis noted 22.96; neutrophil count 19.47 Urine suggestive of UTI; Ketones +. Nitrate +, LE 2+, bacteria 4+ Has a history of klebsiella in the urine 05/29; sensitive to Cefepime Started on Cefepime; continue and adjust based on blood and urine cultures CTAP suggestive of acute bilateral pyelonephritis. No renal abscess. No hydronephrosis. Bladder wall thickening suggestive of cystitis. A small amount of fluid within the pelvis. Low-attenuation right adnexal lesions which favor ovarian cysts or follicles.No bowel obstruction. Normal appendix. Does have a Mirena; inserted Bladder scan ordered History of Klebsiella in Urine 05/2023 IV Tylenol ordered PRN Urology consult placed Pericardial Effusion: Acute Grade IV/ murmur LSB ECHO ordered; EF 60 to 65% with LV wall motion normal and no valvular abnormalities denies chest pain and denies history of IVDA UDS (+) marijuana Troponin negative; ECG suggestive of possible LVH Possible STI: Unprotected sexual intercourse: unprotected vaginal sex with a man three weeks ago; concern for sexually transmitted disease (Did not use condoms) Denies oral or anal intercourse Denies malodor or unusual discharge colors Will cover for possible chlamydia and gonorrhea with Flagyl 500 mg PO BID x7 days and also Doxycycline 100 mg PO BID x7 days. If negative swab can discontinue Hypokalemia: Serum K+ 3.4; will replace with 40 PO Recheck BMP in AM borderline tachy; no ectopy on monitor Spinal code lesions: Non 'official' diagnosis of MS Woke up one morning 5 years ago and was numb from her neck down Has an appt with PCP and Pain Management in May 2024 Currently taking Lyrica; reports it does not help much; H/O cervical surgery: has a cervical cage placed years ago by Dr. bustillo' at [facility] was 3.5 years ago Anxiety/Depression: Chronic Takes Hydroxyzine and Seroquel; continue Chronic allergies: Takes Zyrtec; continue Disposition: PCP: Sanjuana Vasquez- recently changed Code status: Full Code VTE Prophylaxis: Lovenox SQ See in collaboration with Dr. Arora. Please see his addendum for further details. I spent a total of 82 minutes coordinating, documenting, and providing care for this patient excluding time spent in the performance of separately billed services. All of the aforementioned completed while collaborating with the assigned attending physician for a full treatment plan. Please see their addendum for further details. History of Present Illness Chief Complaint: fatigue Primary Care Provider: KARLY Carrillo Ms. Harvey is a 44 year old female that presented to the ED with complaints of not feeling well since last saturday. She reports having a fever on and off, without an actual recorded temperature, and has not been able to keep anything down without much of an appetite. She reports feeling really thirsty and her stomach feels "tight" generally throughout her whole abdomen. She reports polyuria that started on Saturday but reports that she stopped taking her medication for OAB a few months ago. She reports a PMH that includes Patient does have a history of klebsiella in her urine from May 2023 that is sensitive to Cefepime. She reports that she has participated in unprotected sexual relations with a man over the past few weeks without any protection. She denies oral or anal encounter. She denies any malodor or color discharge. In the ED today, Head CT negative for ICH, midline shift, or SDH. Chest CTA was performed without PE, but incidentally found pericardial effusion and pleural effusion. No lymphadeopathy or signs of PNA were noted. CTAP suggestive of acute bilateral pyelonephritis. No renal abscess. No hydronephrosis. Bladder wall thickening suggestive of cystitis. A small amount of fluid within the pelvis. Low-attenuation right adnexal lesions which favor ovarian cysts or follicles.No bowel obstruction. Normal appendix. Leukocytosis noted 2.96; neutrophil count 19.47, hypokalemia 3.4. Lactate, Mg+. HCG negative. She denies Sanchez, dizziness, lightheadedness, chest pain, palpitations, SOB, falls. She just moved into a new apartment last Saturday ([address]). Intermittent tobacco use, denies alcohol use, intermittent marijuana use. On examination, she has significant bilateral CVA tenderness and has abdominal bloating with generalized tenderness with AX4 bowel sounds. Patient will be admitted for further evaluation and management of her symptoms. We will obtain a urine culture, continue IV antibiotics for now, obtain a resting ECHO given the pericardial effusion, and will obtain a blader scan and have the patient evaluated by Urology. Please see A/P for further details. Allergies Allergy/AdvReac Type Severity Reaction Status Date / Time haloperidol [From Haldol] Allergy Severe Swelling Verified 04/20/24 14:29 of Lip/Tongue/Throat aspirin AdvReac Intermediate RINGING IN Verified 04/20/24 14:29 EARS Corticosteroids AdvReac Intermediate INJECTED Verified 04/20/24 14:29 (Glucocorticoids) JOINT BECAME SEVERELY SWOLLEN & STIFF NSAIDS (Non-Steroidal AdvReac Intermediate Redness of Verified 04/20/24 14:29 Anti-Inflamma Skin "FELT LIKE I WAS ON FIRE" Home Medications Medication Instructions Recorded Confirmed Type acetaminophen 500 mg tablet 1,000 mg PO Q6H PRN Pain 05/19/19 04/20/24 History (Tylenol Extra Strength) cetirizine 10 mg tablet (Zyrtec) 10 mg PO DAILY 05/19/19 04/20/24 History docusate sodium 100 mg capsule 100 mg PO BID Constipation 05/19/19 04/20/24 History ferrous sulfate 325 mg (65 mg 325 mg PO DAILY 05/19/19 04/20/24 History iron) tablet (Iron (ferrous sulfate)) fluticasone propionate 50 2 spray intranasal DAILY PRN 05/19/19 04/20/24 History mcg/actuation nasal Congestion spray,suspension (Flonase Allergy Relief) bisacodyl 5 mg tablet 5 mg PO DAILY PRN Constipation 05/23/23 04/20/24 History cholecalciferol (vitamin D3) 50 50 mcg PO DAILY 05/23/23 04/20/24 History mcg (2,000 unit) capsule (Vitamin D3) clindamycin phosphate 1 % topical 1 applic topical QAM PRN outbreaks 05/23/23 04/20/24 History gel levonorgestrel 21 mcg/24 hr (up to 21 mcg intrauterine CONTINOUS 05/23/23 04/20/24 History 8 years) 52 mg intrauterine device (Mirena) ondansetron HCl 4 mg tablet 4 mg PO Q6H PRN NAUSEA/VOMITING 05/23/23 04/20/24 History tretinoin 0.025 % topical cream 1 applic topical HS PRN Outbreak 05/23/23 04/20/24 History (Avita) polyethylene glycol 3350 17 17 g PO DAILY PRN Constipation 12/02/23 04/20/24 History gram/dose oral powder (Miralax) pregabalin 100 mg capsule 100 mg PO BID #20 caps 03/10/24 04/20/24 Rx cyclobenzaprine 10 mg tablet 10 mg PO TID PRN muscle spasms 04/20/24 04/20/24 History hydroxyzine pamoate 50 mg capsule 50 mg PO UD PRN Anxiety/Sleep 04/20/24 04/20/24 History ibuprofen 800 mg tablet 800 mg PO TID 04/20/24 04/20/24 History quetiapine 300 mg tablet 300 mg PO HS 04/20/24 04/20/24 History Past Med/Surg History Problem List (Updated 04/20/24 @ 14:39 by Talia Hickman PA-C) Pericardial effusion (Acute) Multiple sclerosis (Acute) Pyelonephritis (Acute) Hypokalemia (Acute) Concern about STI in female without diagnosis (Acute) Medical History Transverse myelitis Hx of folliculitis Hx of drug abuse Schizophrenia in remission Cellulitis of abdominal wall Encounter for insertion of mirena IUD Hx of lipoma Tendinitis of left hand Degenerative disc disease Pinched nerve in neck Overactive bladder Nightmares Depression Anxiety Social History Smoking Status: Current every day smoker Tobacco Type: Cigarettes Cigarettes Per Day: 10; Hx Alcohol Use: No Hx Substance Use: Yes Prescribed Medications: Marijuana Preferred Language: Georgian Communication Ability: Effective Beliefs That Will Affect Care: None Current Living Situation: Alone Feels Safe at Home: Yes Assistive Devices: None Review of Systems Review of Systems: Neuro: (-) Falls, trauma, slurred speech (+) generalized back pain HEENT: (-) SANCHEZ, dizziness, dysphagia, visual or auditory changes CV: (-) CP, palpitations, swelling Resp: (-) SOB GI: (-) appetite changes, (+) N/V (-) diarrhea/bowel changes (+) generalized abdominal pain : (+) urinary changes; increased frequency. (-) malodorous changes, (-) vaginal discharge changes Skin: (-) rashes Psych: (+) anxiety, depression Physical Exam Physical Exam: Neuro: AAOx4, PERRLA, no aphagia, memory changes, CNII-XII grossly intact HEENT: head normocephalic, moist mucus membranes CV: S1/S2 (Grade IV/ LSB murmur), (-)G/R, (-) edema, cap refill < 3 seconds Resp: Lungs decreased in all lung [place] without adventitious lung sounds. On RA GI: Abdomen bloated/larger/S/ND, (+) abdominal tenderness, Ax4 bowel sounds, (+) B/L CVA tenderness Musculoskeletal: 5/5 B/L UE strength, 5/5 B/L LE strength. No gait disturbance Skin: (-) rashes , (-) erythema. Psych: euthymic mood Results & Data Results & Data Vital Signs (Past 12 Hours) Vital Signs Temp Pulse Pulse Resp BP BP Pulse Ox 04/20/24 12:55 91 H 12 104/61 95 04/20/24 10:34 98 H 18 97/75 L 98 04/20/24 10:08 37 C 95 H 20 97/75 L 97 04/20/24 10:07 95 H O2 Del Method 04/20/24 12:55 Room Air 04/20/24 10:34 Room Air 04/20/24 10:08 Room Air 04/20/24 10:07 Laboratory Results Short CBC 04/20/24 Range/Units 10:20 WBC 22.96 H (4.8-10.8) K/ul Hgb 11.3 L (12.0-16.0) g/dl Hct 33.2 L (37.0-47.0) % Plt Count 690 H (130-400) K/uL BMP 04/20/24 10:20 Sodium 133 L Potassium 3.4 L Chloride 98 Carbon Dioxide 22 BUN 9 Creatinine 0.63 Glucose 92 Calcium 9.0 Liver Function 04/20/24 Range/Units 10:20 Total Bilirubin 0.9 (0.2-1.0) mg/dl AST 14 (13-39) U/L ALT 26 (7-52) U/L Alkaline Phosphatase 185 H (34-104) U/L Albumin 3.5 (3.4-5.0) gm/dl Urine 04/20/24 Range/Units 11:48 Urine Color Dark Yellow Urine Appearance Turbid A (Clear) Urine pH 6.0 (4.5-7.5) Ur Specific [place] 1.017 (1.000-1.030) Urine Protein 2+ H (Negative) Urine Glucose (UA) Negative (Negative) Diagnostic Findings Chest X-Ray 04/20/24 10:49 XR chest 1V portable HISTORY: 44 years-old Female pain with deep breathing, illness COMPARISON: 03/10/2024 TECHNIQUE: AP view the chest FINDINGS: Cardiac mediastinal and hilar silhouettes are within normal limits. No pneumothorax, pleural effusion or airspace consolidation. Bones appear grossly intact. Cervical spinal fusion hardware. IMPRESSION: No acute process. ACT 112: Negative or not required by law. The above report was generated using voice recognition software. It may contain grammatical, syntax or spelling errors. Electronically signed by: Michael Crespo M.D. 04/20/2024 11:23 AM Abdomen/Pelvis CT 04/20/24 11:37 CT OF THE ABDOMEN AND PELVIS WITH CONTRAST CLINICAL HISTORY: Generalized abdominal pain, illness. COMPARISON STUDY: CT of the abdomen pelvis December 02, 2023. TECHNIQUE: Following IV administration of 120 mL of Optiray, axial images of the abdomen and pelvis were obtained from the lung bases to the proximal femurs. Images were reviewed in the axial, sagittal, and coronal planes. IV contrast was administered without complication. Automated exposure control was utilized for the study. A dose lowering technique was utilized adhering to the principles of ALARA. CT DOSE: 3375.82 mGy.cm FINDINGS: There are trace bilateral pleural effusions. No pneumatosis, free air or portal venous gas is present. There are no hepatic lesions. There is no biliary or pancreatic ductal dilatation. Spleen, adrenal glands and pancreas are unremarkable. There is no hydronephrosis. Heterogeneous enhancement of both kidneys with striated nephrograms is noted. There is no renal fluid collection. Intrauterine device is in place. Caliber and wall thickness of small and large bowel are normal. The appendix is normal. A small amount of fluid within the pel vis is present. Low-attenuation right adnexal lesions may reflect ovarian cysts or follicles. Major vasculature is patent. There is mild bladder wall thickening. No ureteral calculi are identified. Sensitivity for detection of renal calculus diminished given excreted contrast. IMPRESSION: 1. Heterogeneous enhancement of the kidneys with striated nephrograms. The findings suggest acute bilateral pyelonephritis. No renal abscess. No hydronephrosis. Bladder wall thickening suggestive of cystitis. 2. Small amount of fluid within the pelvis. Low-attenuation right adnexal lesions which favor ovarian cysts or follicles. 3. No bowel obstruction. Normal appendix. ACT 112: Negative or not required by law. Electronically signed by: Mau Gama M.D. 04/20/2024 1:06 PM Chest CTA 04/20/24 11:37 CT angio chest PE protocol HISTORY: 44 years-old Female with sob, illness, tachycardia. Acute shortness of breath. TECHNIQUE: Multiple CTA images of the chest were obtained after the intravenous administration of 120 ml Optiray. Coronal and sagittal MIPS were obtained from the axial data set and were submitted for review. All measurements were obtained according to NASCET criteria. A dose lowering technique was utilized adhering to the principles of ALARA. COMPARISON: Chest CT 12/02/2023 FINDINGS: CTA: Trace pericardial effusion. The heart is normal in size. Unremarkable thoracic aorta and pulmonary artery. No pulmonary emboli identified. CT CHEST: Unremarkable thyroid. Trace pleural effusions. No lymphadenopathy. Mild bronchial wall thickening. No airspace consolidation typical for pneumonia. No acute upper abdominal abnormality. No acute fracture. There is questioned perinephric stranding of the left kidney. IMPRESSION: 1. No pulmonary emboli. 2. Trace pericardial and pleural effusions. 3. No lymphadenopathy or airspace consolidation typical for pneumonia. 4. Partially imaged equivocal left perinephric stranding. Correlate with urinalysis. ACT 112: Negative or not required by law. The above report was generated using voice recognition software. It may contain grammatical, syntax or spelling errors. Electronically signed by: Michael Crespo M.D. 04/20/2024 1:[address] 04/20/24 11:37 CT head/brain wo con CLINICAL HISTORY: 44 years-old Female with headache, illness. Acute headache with weakness TECHNIQUE: Multiple axial CT images of the head were obtained without contrast. A dose lowering technique was utilized adhering to the principles of ALARA. COMPARISON: 03/10/2024 FINDINGS: No acute intracranial hemorrhage, midline shift, intracranial mass, hydrocephalus, territorial ischemia or abnormal extra-axial collection. The calvarium is intact. The paranasal sinuses, mastoid air cells, and middle ear cavities are clear. IMPRESSION: No acute intracranial abnormality. ACT 112: Negative or not required by law. The above report was generated using voice recognition software. It may contain grammatical, syntax or spelling errors. Electronically signed by: Michael Crespo M.D. 04/20/2024 1:22 PM Code Status & VTE Plan Code Status Full code VTE Prophylaxis Plan VTE Prophylaxis will be ordered: Yes Supervising Physician Co-Signing Physician Notes Patient is a 44-year-old female with history of mood disorder, spinal cord lesions currently being in the process of diagnosis for possible multiple sclerosis,, chronic allergies and other medical problems presents with generalized weakness, poor appetite, worsening bilateral flank, upper abdominal pain. Patient had history of recurrent UTIs in the past. She denies any hematuria, fever, chills, chest pain, dyspnea. She plans to follow-up with urology for recurrent UTIs. Please review HPI for complete details of presentation. I personally reviewed blood work and imaging studies. Blood work showed leukocytosis 22.9, hemoglobin 11.3, hematocrit 33.2, platelets 690K, sodium 133, potassium 3.4, alkaline phosphatase 195. HCG negative. Normal procalcitonin. CTA chest showed trace pericardial, pleural effusions. CT abdomen showed findings suggestive of acute bilateral pyelonephritis, cystitis, adnexal lesions suggestive of ovarian cysts/follicles. Physical Exam: Vitals signs as noted above General Appearance:Moderately built and nourished, no apparent distress Head: normocephalic, Atraumatic Eyes: normal inspection, EOMI Neck: supple, Trachea midline Respiratory/Chest: Normal breath sounds, CTA, No accessory muscle use Cardiovascular: S1, S2, No murmur Abdomen/GI:Soft, B/L Flank tender, Bowel sounds present, no guarding or rigidity Extremities/Musculoskeletal:normal inspection, no edema Neurologic/Psych:AAOX3, grossly no focal neurological deficits Skin: normal color, warm Acute bilateral pyelonephritis Hypokalemia Possible sepsis Reactive thrombocytosis Trace pericardial effusion Mild hyponatremia Blood, urine culture pending Given suspected STI, will start on broad-spectrum antibiotics Given recurrent UTIs, urology consulted Cautious use of pain medications given use of chronic marijuana Replete electrolytes as needed Echo reviewed Further management based on cultures Bladder scan as needed to monitor for any urinary retention I personally interviewed and examined at bedside. Patient's care is coordinated with Trupti BRANDT. I have reviewed the advanced practitioner's documentation, and I agree with plan of care. Please refer to the documentation above for details of patient's presentation and for discussion of other issues. I spent a total [id number] coordinating, documenting, and providing care for this patient excluding time spent in the performance of separately billed services.
--- OUTSIDE RECORDS SUMMARY | 2024-04-20 14:07 | External Medical Summary | Summary of Care ---
Author Name Unknown Organization [facility] Address [address] [place] [address] Phone [phone] Care Team Providers Care Servicing Manager Name Role Phone Cecilia Vasquez Primary Care Provider Encounter Details Date Type Department Care Team (Late st Contact Info) Description 04/09/2024 Telephone Family Practice [facility] [address] [place] [address] Cecilia Vasquez CRNP [address] [place] [address] Allergies Active Allergy Reactions Criticality Noted Date Comments Aspirin Other (Please comment) Medium 07/13/2014 Ears ringing Corticosteroids 04/21/2019 Haloperidol Edema face/lips/tongue High 02/18/2013 Naproxen 02/18/2013 Flu symptoms-does not feel right Nsaids 02/14/2018 documented as of this encounter (statuses as of 04/14/2024) Medications QUEtiapine (SEROQUEL) 200 MG Tablet one at bedtime 30 Tab 2 9 Active SF 5000 PLUS 1.1 % cream 0 Active Pregabalin 100 MG Oral Capsule (Lyrica) Take 1 Capsule by mouth in the morning and 1 Capsule before bedtime. Active Cyclobenzaprine HCl 10 MG Oral Tablet (Flexeril) Take 1 Tablet by mouth in the morning and 1 Tablet at noon and 1 Tablet before bedtime. Active Naproxen 250 MG Oral Tablet (Naprosyn) Take 1 Tablet by mouth 2 times a day with morning and evening meals. Active Mirena (52 MG) 20 MCG/DAY Intrauterine Intrauterine Device (Levonorgestrel) Insert 1 Each into uterus once. Active Polyethylene Glycol 3350 17 GM/SCOOP Oral Powder (MiraLax)Indicati ons:Constipation, unspecified constipation type Take 17 g by mouth as needed for Constipation. Dissolve one heaping tablespoon in 8 ounces of water or juice. 850 g 3 Active Vitamin D 50 MCG (2000 UT) Oral Tablet Take 2,000 Units by mouth in the morning. 90 Tablet 1 4 Active Fluticasone Propionate 50 MCG/ACT Nasal Suspension (Flonase)Indicati ons:Seasonal allergic rhinitis, unspecified trigger Administer 2 Sprays into each nostril in the morning. 48 g 1 4 Active Docusate Sodium 100 MG Oral Capsule (DOK) Take 1 Capsule by mouth in the morning and 1 Capsule before bedtime. 180 Capsule 1 4 Active Fesoterodine Fumarate ER 8 MG Oral Tablet Extended Release 24 Hour (Toviaz) Take 1 Tablet by mouth in the morning. 90 Tablet 1 4 Active Ferrous Sulfate 325 (65 Fe) MG Oral Tablet (FeroSul)Indicati ons:Anemia, unspecified type Take 1 Tablet by mouth in the morning and 1 Tablet before bedtime. 60 Tablet 3 4 Active Ondansetron HCl 4 MG Oral Tablet (Zofran) TAKE ONE TABLET BY MOUTH EVERY SIX HOURS NEEDED for nausea 30 Tablet 4 Active Acetaminophen 500 MG Oral Tablet (Tylenol) Take 1 Tablet by mouth every 6 hours as needed for Pain, Moderate. 30 Tablet 3 4 Active Avita 0.025 % External Cream apply an m and m size (to each area) to face, chest, and upper back at night as instructed 40 g 1 4 Active Clindamycin Phosphate 1 % External GelIndications:Ot her acne Apply to face, back and chest every morning 60 g 1 4 Active Bisacodyl 5 MG Oral Tablet Delayed Release (Dulcolax) Take 1 Tablet by mouth daily as needed for Constipation. 30 Tablet 4 Active Cetirizine HCl 10 MG Oral Tablet (ZyrTEC) Take 1 Tablet by mouth at bedtime. 90 Tablet 1 4 Active Ibuprofen 600 MG Oral Tablet (Motrin) TAKE 1 TABLET BY MOUTH 3 TIMES DAILY WITH FOOD ( AM, NOON, AND BEDTIME) 90 Tablet 1 4 Active hydrOXYzine Pamoate 50 MG Oral Capsule (Vistaril) TAKE 1 CAPSULE BY MOUTH EVERY DAY NEEDED 30 Capsule 4 Active documented as of this encounter (statuses as of 04/14/2024) Active Problems Problem Noted Date Diagnosed Date Degeneration of intervertebr al disc of lumbar region with discogenic back pain and lower extremity pain 03/18/2024 Cervical cord compression with myelopathy 2022 Tobacco use disorder 12/13/2019 Medical marijuana use 12/13/2019 Schizophrenia 09/18/2018 documented as of this encounter (statuses as of 04/14/2024) Resolved Problems Problem Noted Date Diagnosed Date Resolved Date Other incomplete lesion at C 5 level of cervical spinal cord, initial encounter 09/26/2023 03/17/2024 Other psychoactive substance use, unspecified, uncomplicated 09/26/2023 03/17/2024 Bipolar disorder, currently in remission, most recent episode unspecified 09/26/2023 03/17/20 24 Cervical stenosis of spine 08/08/2022 1 05/17/2023 Recurrent UTI (urinary tract infection) 08/08/2022 03/17/2024 Food insecurity 12/12/2020 03/17/2024 Overview: Per [facility] Protocol Idiopathic transverse myelitis 03/21/2020 03/18/2024 At risk for falls 03/21/2020 03/17/2024 Numbness and tingling of right arm 12/07/2019 03/17/2024 Myelomalacia 04/21/2019 03/18/2024 Screening for venereal disease 04/14/2019 03/17/2024 Malodorous urine 02/11/2019 08/08/2022 Vaginal discharge 08/18/2018 09/25/2023 Extensor tendon dislocation, nontraumatic, hand, left 08/13/2018 03/17/2024 Bipolar disorder 06/18/2014 03/17/2024 Overview (06/18/2014): With psychotic features 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 1 05/17/2023 Urge incontinence 04/06/2014 08/08/2022 documented as of this encounter (statuses as of 04/14/2024) Immunizations Name Administration Dates Next Due Pneumococcal Polysaccharide PPV23 (Pneumovax) Seasonal Influenza, PF, 6 M & above, IM , (FluLaval or Fluzone) 02/11/2019 Seasonal Influenza, Quadrivalent, No Preserve, I M 02/12/2017,05/09/2016 TDAP (age 10 and older)(Boostrix) 05/09/2016 documented as of this encounter Social History Tobacco Use Types Packs/Day Years Used Date Smoking Tobacco: Every Day Cigarettes Smokeless Tobacco: Never Alcohol Use Standard Drinks/Week Comments No 0 (1 standard drink = 0.6 oz pur e alcohol) PHQ-2 Answer Date Recorded PHQ Adult Total Score 7 06/24/2023 Hunger Vital Sign Answer Date Recorded Within the past 12 months, y ou worried that your food would run out before you got the money to buy more. Sometimes true Within the past 12 months, t he food you bought just didn't last and you didn't have money to get more. Sometimes true Childcare Answer Date Recorded Do you feel overwhelmed with taking care of a child, family member or friend? No 06/24/2023 Does your family need help f inding childcare? (Household - for ages 0-17 years) Not on file 06/24/2023 Clothing Answer Date Recorded Have you been unable to get clothing when it was really needed? No 06/24/2023 Is your family able to get c lothes or diapers when needed? (Household - for ages 0-17 years) Not on file 06/24/2023 Personal Safety Answer Date Recorded Do you feel unsafe or have concerns for your saf ety? No 06/24/2023 Do you have concerns for you r family's safety? (Household - for ages 0-17 years) Not on file 06/24/2023 Utilities Answer Date Recorded Do you have trouble paying y our heating, water, or electric bill? No 06/24/2023 Is your family able to pay t he heat, water, or electric bill? (Household - for ages 0-17 years) Not on file 06/24/2023 Does your family have access to good internet? (Household - for ages 0-17 years) Not on file 06/24/2023 Employment Status Answer Date Recorded Are you unemployed or without regular income? Ye s 06/24/2023 Does the household have a re gular source of income? (Household - for ages 0-17 years) Not on file 06/24/2023 Social Connections Answer Date Recorded How often do you feel lonely or isolated from th ose around you? Rarely 06/24/2023 Financial Resource Strain Answer Date R ecorded Do you have any trouble payi ng for your medications, or do you think you might in the future? No 06/24/2023 Does your family have troubl e paying for medicine? (Household - for ages 0-17 years) Not on file 06/24/2023 Transportation Needs Answer Date Record ed READ ONLY Do you have troubl e getting a ride to medical visits or work? Sometimes True 06/24/2023 Does your family have a hard time getting a ride to doctors visits? (Household - for ages 0-17 years) Not on file 06/24/2023 Has lack of transportation k ept you from medical appointments, meetings, work, or from getting things needed for daily living? Check all that apply. (Adult - for ages 18 years and over) Not on file 06/24/2023 Do you (or your family) have trouble finding or paying for a ride (transportation)? (Household - for ages 0-17 years) Not on file 06/24/2023 Housing Stability Answer Date Recorded Do you currently live in a s helter or have no steady place to sleep at night? Yes 06/24/2023 READ ONLY Do you think you a re at risk of becoming homeless? No 06/24/2023 Does your family worry about paying for your home or becoming homeless? (Household - for ages 0-17 years) Not on file 0 06/24/2023 Are you homeless or worried that you might be in the future? (Adult - for ages 18 years and over) Not on file Are you (or your family) rafiq eless or worried that you might be in the future? (Household - for ages 0-17 years) Not on file Food Insecurity Answer Date Recorded Do you need food for this week? No 06/24/2023 Are you able to get enough f ood for your family? (Household - for ages 0-17 years) Not on file 06/24/2023 Does your family need food t his week? (Household - for ages 0-17 years) Not on file 06/24/2023 Do you always have enough fo od for your family? (Household - for ages 0-17 years) Not on file 06/24/2023 Comments No Sex and Gender Information Value Date Recorded Sex Assigned at Female 09/18/2018 9:43 AM EDT Legal Sex Female 7:02 AM EST Gender Identity Female 09/18/2018 9:43 AM EDT Sexual Orientation Not on file Occupation Industry Job Start Date Job End Date Not on file Not on file Not on file Not on file documented as of this encounter Miscellaneous Notes * Telephone Encounter - Maritza Arellano LPN - 04/14/2024 3:19 PM EST Will keep appts * Telephone Encounter - Cecilia Vasquez CRNP - 04/09/2024 8:36 AM EST Mammogram shows incomplete evaluation. Looks like she has follow up imaging ordered. REcommend she keep those appts. documented in this encounter Plan of Treatment Upcoming Encounters Date Type Department Care Team (Late st Contact Info) Description 04/16/2024 11:20 AM EST Office Visit Family Practice [facility] [address] [place] [address] August Dueñas MD [address] [place] [address] 04/20/2024 12:30 PM EST Imaging Radiology [facility] [place] [address] [place] [address] 04/20/2024 1:00 PM EST Imaging Radiology [facility] [address] [place] [address] 05/12/2024 8:00 AM EST Office Visit [facility], [facility] [address] [place] [address] Linda Moreno PA-C [address] [place] [address] Health Maintenance Due Date Last Done Comments Hepatitis B Vaccine (1 of 3 - 19+ 3-dose series) 1997 Pneumococcal Vaccine: Pediatrics (0 to 5 Years) and At-Risk Patients (6 to 64 Years) (2 of 2 - PCV) 04/18/2018 04/18/2017 Pap Smear 09/24/2022 09/25/2019, 09/04, 11/07/2016, Additional history exists Cologuard 2023 Colonoscopy 2023 Colorectal Cancer Screening 2023 Fecal Occult Blood Test 2023 Sigmoidoscopy 2023 COVID-19 Vaccine ( season) 2024 02/19/2023, 01/26/2022 Influenza Vaccine (FLU shot) (#1) 2024 02/11/2019, 02/11/2019, 02/12/2017, Additional history exists Depression Screening 06/24/2024 06/24/2023 Lipid Panel 01/03/2025 01/04/2020 IUD 7-Year 02/14/2025 02/14/2018 Mammogram 04/08/2025 04/08/2024, 04/0 11/2019, 06/03/2019 Diabetes Screening 08/08/2025 08/08/2022, 0 02/01/2020, 02/01/2020, Additional history exists DTap/Tdap Vaccines (2 - Td or Tdap) 05/09/2026 05/09/2016 Cervical Cancer Screening 01/30/2028 HPV/Co-Test 01/30/2028 01/29/2023, 04/14/2021 HPV (Gardasil) Vaccine Aged Out No lo nger eligible based on patient's age to complete this topic MENINGOCOCCAL (MENACTRA/MENVEO) Aged Out No longer eligible based on patient's age to complete this topic documented as of this encounter Medical Devices Not on filedocumented as of this encounter Care Teams Servicing Manager Relationship Specialty Start Date End Date Cecilia Vasquez CRNP [address] [place] [address] PCP - General Nurse Practitioner 08/08/22 documented as of this encounter
--- OUTSIDE RECORDS SUMMARY | 2024-04-20 14:07 | External Medical Summary | Summary of Care ---
Author Name Unknown Organization [facility] Address [address] [place] [address] Phone [phone] Care Team Providers Care Bench Hand Name Role Phone Cecilia Vasquezdoyle BRANDT Primary Care Provider Reason for Visit * Reason Onset Date Comments No Show 03/24/2024 [facility] No Show Auto mation Encounter Details Date Type Department Care Team (Late st Contact Info) Description 03/24/2024 Telephone Family Practice [facility] [address] [place] [address] Emerald Quinonez MD [address] [place] [address] No Show ([place] No Show Automation) Allergies Active Allergy Reactions Criticality Noted Date Comments Aspirin Other (Please comment) Medium 07/13/2014 Ears ringing Corticosteroids 04/21/2019 Haloperidol Edema face/lips/tongue High 02/18/2013 Naproxen 02/18/2013 Flu symptoms-does not feel right Nsaids 02/14/2018 documented as of this encounter (statuses as of 03/24/2024) Medications QUEtiapine (SEROQUEL) 200 MG Tablet one [...] as of this encounter (statuses as of 03/24/2024) Active Problems Problem Noted Date Diagnosed Date Degeneration of intervertebr al disc of lumbar region with discogenic back pain and lower extremity pain 03/18/2024 Cervical cord compression with myelopathy 2022 Tobacco use disorder 12/13/2019 Medical marijuana use 12/13/2019 Schizophrenia 09/18/2018 documented as of this encounter (statuses as of 03/24/2024) Resolved Problems Problem Noted Date Diagnosed Date [...] as of this encounter (statuses as of 03/24/2024) Immunizations Name Administration Dates Next Due Pneumococcal [...] encounter Miscellaneous Notes * Telephone Encounter - [place], No Show - 03/24/2024 8:57 PM EST Dear Ann-Marie Harvey, Looks like you missed an appointment with EMERALD QUINONEZ on 03/18/2024 at 09:40 AM. If you haven't already rescheduled, you have a couple of options: Reschedule in [email or web address]/scheduling Call us at [phone] Can't make a future appointment? Cancel and let someone else have your spot! It's easy to do via [employer] or by calling us. Thanks for trusting [facility] with your care. We hope to see you back in our office soon. Sincerely, EMERALD QUINONEZ documented in this encounter Plan of Treatment Upcoming Encounters Date Type Department Care Team (Late st Contact Info) Description 04/08/2024 1:15 PM EST Imaging Radiology [address] [place] [address] 05/12/2024 8:00 AM EST Office Visit [facility] Center, [facility] [address] [place] [address] Linda Moreno PA-C [address] [place] [address] Health Maintenance Due Date Last Done Comments Hepatitis B Vaccine (1 of 3 - 19+ 3-dose series) 1997 Pneumococcal Vaccine: Pediatrics (0 to 5 Years) and At-Risk Patients (6 to 64 Years) (2 of 2 - PCV) 04/18/2018 04/18/2017 Mammogram 08/10/2020 08/11/2019, 06/03/2019 Pap Smear 09/24/2022 09/25/2019, 09/04, 11/07/2016, Additional history exists Cologuard 2023 Colonoscopy 2023 Colorectal Cancer Screening 2023 Fecal Occult Blood Test 2023 Sigmoidoscopy 2023 COVID-19 Vaccine ( season) 2024 02/19/2023, 01/26/2022 Influenza Vaccine (FLU shot) (#1) 2024 02/11/2019, 02/11/2019, 02/12/2017, Additional history exists Depression Screening 06/24/2024 06/24/2023 Lipid Panel 01/03/2025 01/04/2020 IUD 7-Year 02/14/2025 02/14/2018 Diabetes Screening 08/08/2025 08/08/2022, 0 02/01/2020, 02/01/2020, [...] filedocumented as of this encounter Care Teams Bench Hand Relationship Specialty Start Date End Date Cecilia Vasquez CRNP [address] [address] PCP - General Nurse Practitioner 08/08/22 documented as of this encounter
[2024-04-20] MEDS ORDERED: CYCLOBENZAPRINE HCL 10 MG TAB PO PRN (14:59)
[2024-04-20 15:04] LABS: Amphetamines+Metham, Urine Neg (Neg); Barbiturates, Urine Neg (Neg); Benzodiazepine, Urine Neg (Neg); Cocaine, Urine Neg (Neg); Fentanyl, Urine Neg (Neg); MDMA (Ecstacy), Urine Neg (Neg); Marijuana, Urine Pos (Neg); Methadone, Urine Neg (Neg); Opiate, Urine Neg (Neg); Phencyclidine, Urine Neg (Neg)
[2024-04-20] MEDS ORDERED: ACETAMINOPHEN 1,000 MG/100 ML VIAL IV PRN (15:20)
[2024-04-20] MEDS: POTASSIUM CHLORIDE CRTAB 20 MEQ TABCR PO STA (15:35)
[2024-04-20] MEDS: DOXYCYCLINE HYCLATE 100 MG CAP PO STA (15:38)
[2024-04-20] MEDS: metroNIDAZOLE 500 MG TAB PO STA (15:38)
[2024-04-20] MEDS: SODIUM CHLORIDE 0.9% 1,000 ML IV SCH (15:41)
[2024-04-20] MEDS: PREGABALIN 100 MG CAP PO SCH (20:31)
[2024-04-20] MEDS: QUEtiapine FUMARATE 300 MG TABLET PO SCH (20:31)
[2024-04-20] MEDS: hydrOXYzine HCl 25 MG TAB PO PRN (20:33)
[2024-04-20] MEDS: metroNIDAZOLE 500 MG TAB PO SCH (22:06)
[2024-04-20] MEDS: DOXYCYCLINE HYCLATE 100 MG CAP PO SCH (22:06)
[2024-04-20] MEDS: CEFEPIME 2000MG 2,000 MG/20 ML SYR IV SCH (23:48)
--- NOTE | 2024-04-21 08:04 | Hospitalist Progress Note ---
Date of Service April 21, 2024 Assessment & Plan (1) Pyelonephritis: (2) Pericardial effusion: (3) Hypokalemia: (4) Multiple sclerosis: (5) Depression: (6) Anxiety: Plan Ms. Harvey is a 44yoF admitted with concern for bilateral pyelonephritis. Pyelonephritis Pt presenting with leukocytosis and fevers at home UA suggestive of infection, one urine Cx from 04/[address] abd//pelvis suggestive of bilateral pyelonephritis Has a history of klebsiella in the urine 05/29; sensitive to Cefepime Continue on Cefepime at this time Urology consult placed, appreciate further recs Possible STI Pt noting concern for possible STI G/C pending on empiric Flagyl 500 mg PO BID x7 days and also Doxycycline 100 mg PO BID x7 days. Hypokalemia: replete as needed Mild Hyponatremia Na of 133 IV fluids Continue to monitor Anemia Hgb of 11.3 Continue to monitor Reactive thrombocytosis platelets elevated Continue to monitor Pericardial Effusion, trace Noted on chest CTA ECHO ordered; EF 60 to 65% with LV wall motion normal and no valvular abnormalities, trivial circumferential pericardial effusion, no cardiac tamponade Troponin negative denies chest pain Spinal code lesions: Non 'official' diagnosis of MS Woke up one morning 5 years ago and was numb from her neck down Has an appt with PCP and Pain Management in May 2024 Currently taking Lyrica; reports it does not help much; H/O cervical surgery: [facility] Anxiety/Depression: Chronic Takes Hydroxyzine and Seroquel; continue Chronic allergies: Takes Zyrtec; continue Code status: Full Code VTE Prophylaxis: Lovenox SQ Dispo: Home once medically stable Admission and Anticipated Discharge Date Admission Date: April 20, 2024 Subjective patient was seen in the a.m. resting comfortably in bed Asking about eating, no she had clear for breakfast Does state that her symptoms have improved significantly but still not back to baseline Review of Systems Review of Systems: All systems reviewed & are unremarkable except as noted in Subjective Physical Exam Physical Exam: General: Alert, oriented. No acute distress Skin: No noted rashes or bruises HEENT: NC/AT CV: RRR Resp: Breath sounds clear bilaterally, no increased effort of breathing Abdomen:Soft, tender Extremities: No edema in lower extremities bilaterally. Results & Data Results & Data Vital Signs (Past 12 Hours) Vital Signs Temp Pulse Pulse Pulse Resp BP BP 04/21/24 03:08 36.9 C 101 H 18 04/20/24 23:26 109 H 04/20/24 23:20 04/20/24 23:20 36.7 C 108 H 18 99/64 L 04/20/24 23:05 97 H 16 109/62 04/20/24 20:19 99 H 18 104/64 BP Pulse Ox O2 Del Method 04/21/24 03:08 99/65 L 97 Room Air 04/20/24 23:26 04/20/24 23:20 Room Air 04/20/24 23:20 95 Room Air 04/20/24 23:05 97 Room Air 04/20/24 20:19 96 Room Air Diagnostic Findings Chest X-Ray 04/20/24 10:49 XR chest 1V portable HISTORY: 44 years-old Female pain with deep breathing, illness COMPARISON: 03/10/2024 TECHNIQUE: AP view the chest FINDINGS: Cardiac mediastinal and hilar silhouettes are within normal limits. No pneumothorax, pleural effusion or airspace consolidation. Bones appear grossly intact. Cervical spinal fusion hardware. IMPRESSION: No acute process. ACT 112: Negative or not required by law. The above report was generated using voice recognition software. It may contain grammatical, syntax or spelling errors. Electronically signed by: Michael Crespo M.D. 04/20/2024 11:23 AM Abdomen/Pelvis CT 04/20/24 11:37 CT OF THE ABDOMEN AND PELVIS WITH CONTRAST CLINICAL HISTORY: Generalized abdominal pain, illness. COMPARISON STUDY: CT of the abdomen pelvis December 02, 2023. TECHNIQUE: Following IV administration of 120 mL of Optiray, axial images of the abdomen and pelvis were obtained from the lung bases to the proximal femurs. Images were reviewed in the axial, sagittal, and coronal planes. IV contrast was administered without complication. Automated exposure control was utilized for the study. A dose lowering technique was utilized adhering to the principles of ALARA. CT DOSE: 3375.82 mGy.cm FINDINGS: There are trace bilateral pleural effusions. No pneumatosis, free air or portal venous gas is present. There are no hepatic lesions. There is no biliary or pancreatic ductal dilatation. Spleen, adrenal glands and pancreas are unremarkable. There is no hydronephrosis. Heterogeneous enhancement of both kidneys with striated nephrograms is noted. There is no renal fluid collection. Intrauterine device is in place. Caliber and wall thickness of small and large bowel are normal. The appendix is normal. A small amount of fluid within the pelvis is present. Low-attenuation right adnexal lesions may reflect ovarian cysts or follicles. Major vasculature is patent. There is mild bladder wall thickening. No ureteral calculi are identified. Sensitivity for detection of renal calculus diminished given excreted contrast. IMPRESSION: 1. Heterogeneous enhancement of the kidneys with striated nephrograms. The findings suggest acute bilateral pyelonephritis. No renal abscess. No hydronephrosis. Bladder wall thickening suggestive of cystitis. 2. Small amount of fluid within the pelvis. Low-attenuation right adnexal lesions which favor ovarian cysts or follicles. 3. No bowel obstruction. Normal appendix. ACT 112: Negative or not required by law. Electronically signed by: Mau Gama M.D. 04/20/2024 1:06 PM Chest CTA 04/20/24 11:37 CT angio chest PE protocol HISTORY: 44 years-old Female with sob, illness, tachycardia. Acute shortness of breath. TECHNIQUE: Multiple CTA images of the chest were obtained after the intravenous administration of 120 ml Optiray. Coronal and sagittal MIPS were obtained from the axial data set and were submitted for review. All measurements were obtained according to NASCET criteria. A dose lowering technique was utilized adhering to the principles of ALARA. COMPARISON: Chest CT 12/02/2023 FINDINGS: CTA: Trace pericardial effusion. The heart is normal in size. Unremarkable thoracic aorta and pulmonary artery. No pulmonary emboli identified. CT CHEST: Unremarkable thyroid. Trace pleural effusions. No lymphadenopathy. Mild bronchial wall thickening. No airspace consolidation typical for pneumonia. No acute upper abdominal abnormality. No acute fracture. There is questioned perinephric stranding of the left kidney. IMPRESSION: 1. No pulmonary emboli. 2. Trace pericardial and pleural effusions. 3. No lymphadenopathy or airspace consolidation typical for pneumonia. 4. Partially imaged equivocal left perinephric stranding. Correlate with urina lysis. ACT 112: Negative or not required by law. The above report was generated using voice recognition software. It may contain grammatical, syntax or spelling errors. Electronically signed by: Michael Crespo M.D. 04/20/2024 1:[address] 04/20/24 11:37 CT head/brain wo con CLINICAL HISTORY: 44 years-old Female with headache, illness. Acute headache with weakness TECHNIQUE: Multiple axial CT images of the head were obtained without contrast. A dose lowering technique was utilized adhering to the principles of ALARA. COMPARISON: 03/10/2024 FINDINGS: No acute intracranial hemorrhage, midline shift, intracranial mass, hydrocephalus, territorial ischemia or abnormal extra-axial collection. The calvarium is intact. The paranasal sinuses, mastoid air cells, and middle ear cavities are clear. IMPRESSION: No acute intracranial abnormality. ACT 112: Negative or not required by law. The above report was generated using voice recognition software. It may contain grammatical, syntax or spelling errors. Electronically signed by: Michael Crespo M.D. 04/20/2024 1:22 PM
[2024-04-21] MEDS: ENOXAPARIN INJ 40 MG/0.4 ML SYR SQ SCH (08:13)
[2024-04-21] MEDS: CETIRIZINE HCL 10 MG TABLET PO SCH (08:14)
[2024-04-21 08:49] LABS: Basophils # (auto) 0.03 K/uL (0.00-0.20); Basophils % (auto) 0.2 %; Eosinophils # (auto) 0.01 K/uL (0.00-0.50); Eosinophils % (auto) 0.1 %; Hematocrit (blood only) 27.6 % (37.0-47.0); Hemoglobin 9.3 g/dl (12.0-16.0); Immature Granulocytes # (auto) 0.18 K/uL (0.01-0.20); Immature Granulocytes % (auto) 1.2 %; Lymphocytes # (auto) 2.01 K/uL (1.20-3.40); Lymphocytes % (auto) 13.3 %; Mean Corpuscular Hemoglobin 30.4 pg (25.0-34.0); Mean Corpuscular Hgb Conc 33.7 g/dL (32.0-36.0); Mean Corpuscular Volume 90.2 fL (80.0-100.0); Mean Platelet Volume 9.7 fL (9.4-12.4); Monocytes # (auto) 1.19 K/uL (0.11-0.59); Monocytes % (auto) 7.9 %; Neutrophils # (auto) 11.72 K/uL (1.40-6.50); Neutrophils % (auto) 77.3 %; Platelet Count 614 K/uL (130-400); RDW Coefficient of Variation 13.5 % (11.5-14.5); RDW Standard Deviation 44.5 fL (36.4-46.3); Red Blood Count 3.06 M/uL (4.20-5.40); White Blood Count 15.14 K/ul (4.8-10.8)
[2024-04-21 09:05] LABS: BUN Creatinine Ratio 15.1 (10-20); Calcium 8.2 mg/dl (8.6-10.3); Creatinine Clr Calc Pharmacy 121.7 ml/min; Potassium 3.3 mmol/L (3.5-5.1)
[2024-04-21] MEDS: FERROUS SULFATE 325 MG TAB PO SCH (12:23)
[2024-04-21 12:31] LABS: Chlam trach RNA(Genit,Ureth,Ur Not Detected (NotDetected); GC(Neis gon)RNA(Genit,Ureth,Ur Not Detected (NotDetected)
--- NOTE | 2024-04-21 12:47 | Urology Consultation ---
Date of Consultation April 21, 2024 Assessment & Plan (1) Pyelonephritis: 44-year-old female admitted for bilateral pyelonephritis. Patient afebrile and hemodynamically stable Labs today reviewedcreatinine 0.53, WBC downtrending (15.14), hemoglobin 9.3 Urinalysis suggestive of infection Urine culture prelim with E. coli Blood cultures pending Continue broad-spectrum antibiotics and narrow per sensitivity data when available CT scan suggestive of bilateral pyelonephritis, no renal abscess or hydr onephrosis No intervention warranted at this time Continue with antibiotics and supportive care Monitor voiding and bladder scan as needed Patient can follow-up with urology as scheduled as an outpatient to discuss prevention regarding frequent UTIs will sign off, recall as needed History of Present Illness Reason for Consultation: acute pyelonephritis Attending Physician: Kori Noel MD History of Present Illness This is a 44-year-old female with history of multiple sclerosis who presented to the emergency department on 04/20/2024 for evaluation of ill feelings with runny nose, body aches, chills, fatigue and headache. On arrival to ED, she was afebrile, hemodynamically stable. Labs showed white count of 22.96, hemoglobin 11.3, sodium 133, potassium 3.4, creatinine 0.63. Urinalysis showed trace blood, positive nitrates, 2+ LE, >50 WBC, 11-20 RBC, 4+ bacteria. Viral PCR negative. Workup included CT abdomen pelvis with contrast which demonstrated heterogeneous enhancement of the kidneys with striated nephrogram suggestive of acute bilateral pyelonephritis. No renal abscess. No hydronephrosis. ED course included IV fluids, cefepime, ondansetron. She was admitted to the hospital medicine service for acute pyelonephritis, pericardial effusion and hypokalemia. Urology is consulted for acute pyelonephritis. Patient seen and examined at bedside. She is awake and resting in bed. Sub jectively feeling a little bit better since arrival. Reports flank discomfort. Voiding spontaneously. No dysuria or hematuria currently. She reports fever/chills for about 1 week prior to arrival, denies preceding UTI symptoms. No nausea, vomiting, fever or chills at present. She reports frequent hx of UTIs. She reports that she is pending urology appt with [facility]. Hx of overactive bladder. Allergies Allergy/AdvReac Type Severity Reaction Status Date / Time haloperidol [From Haldol] Allergy Severe Swelling Verified 04/20/24 14:29 of Lip/Tongue/Throat aspirin AdvReac Intermediate RINGING IN Verified 04/20/24 14:29 EARS Corticosteroids AdvReac Intermediate INJECTED Verified 04/20/24 14:29 (Glucocorticoids) JOINT BECAME SEVERELY SWOLLEN & STIFF NSAIDS (Non-Steroidal AdvReac Intermediate Redness of Verified 04/20/24 14:29 Anti-Inflamma Skin "FELT LIKE I WAS ON FIRE" Home Medications Medication Instructions Recorded Confirmed Type acetaminophen 500 mg tablet 1,000 mg PO Q6H PRN Pain 05/19/19 04/20/24 History (Tylenol Extra Strength) cetirizine 10 mg tablet (Zyrtec) 10 mg PO DAILY 05/19/19 04/20/24 History docusate sodium 100 mg capsule 100 mg PO BID Constipation 05/19/19 04/20/24 History ferrous sulfate 325 mg (65 mg 325 mg PO DAILY 05/19/19 04/20/24 History iron) tablet (Iron (ferrous sulfate)) fluticasone propionate 50 2 spray intranasal DAILY PRN 05/19/19 04/20/24 History mcg/actuation nasal Congestion spray,suspension (Flonase Allergy Relief) bisacodyl 5 mg tablet 5 mg PO DAILY PRN Constipation 05/23/23 04/20/24 History cholecalciferol (vitamin D3) 50 50 mcg PO DAILY 05/23/23 04/20/24 History mcg (2,000 unit) capsule (Vitamin D3) clindamycin phosphate 1 % topical 1 applic topical QAM PRN outbreaks 05/23/23 04/20/24 History gel levonorgestrel 21 mcg/24 hr (up to 21 mcg intrauterine CONTINOUS 05/23/23 04/20/24 History 8 years) 52 mg intrauterine device (Mirena) ondansetron HCl 4 mg tablet 4 mg PO Q6H PRN NAUSEA/VOMITING 05/23/23 04/20/24 History tretinoin 0.025 % topical cream 1 applic topical HS PRN Outbreak 05/23/23 04/20/24 History (Avita) polyethylene glycol 3350 17 17 g PO DAILY PRN Constipation 12/02/23 04/20/24 History gram/dose oral powder (Miralax) pregabalin 100 mg capsule 100 mg PO BID #20 caps 03/10/24 04/20/24 Rx cyclobenzaprine 10 mg tablet 10 mg PO TID PRN muscle spasms 04/20/24 04/20/24 History hydroxyzine pamoate 50 mg capsule 50 mg PO UD PRN Anxiety/Sleep 04/20/24 04/20/24 History ibuprofen 800 mg tablet 800 mg PO TID 04/20/24 04/20/24 History quetiapine 300 mg tablet 300 mg PO HS 04/20/24 04/20/24 History Patient History Medical History Transverse myelitis Hx of folliculitis Hx of drug abuse Schizophrenia in remission Cellulitis of abdominal wall Encounter for insertion of mirena IUD Hx of lipoma Tendinitis of left hand Degenerative disc disease Pinched nerve in neck Overactive bladder Nightmares Depression Anxiety Social History Smoking Status: Current every day smoker Tobacco Type: Cigarettes Cigarettes Per Day: 10; Hx Alcohol Use: No Hx Substance Use: Yes Prescribed Medications: Marijuana Last Used Substance: Hours (ago) Preferred Language: Vietnamese Communication Ability: Effective Coremaker Machine Required: No Beliefs That Will Affect Care: None Current Living Situation: Alone Feels Safe at Home: Yes Assistive Devices: None Review of Systems Review of Systems: All systems reviewed & are unremarkable except as noted in HPI & below Physical Exam Constitutional: well developed and well nourished; no acute distress Respiratory: normal respiratory effort; no respiratory distress and no labored breathing Gastrointestinal (Abdomen): Inspection/Auscultation: abdomen normal to inspection Musculoskeletal: Head/Neck/Chest: normocephalic Neurologic: moves all extremities and awake Psychiatric: Orientation: alert and oriented x 3 Results & Data Vital Signs (Past 12 Hours) Vital Signs Temp Pulse Pulse Resp BP BP Pulse Ox 04/21/24 11:42 36.6 C 88 18 111/70 97 04/21/24 11:31 96 H 04/21/24 08:37 36.7 C 81 18 94/59 L 94 04/21/24 03:08 36.9 C 101 H 18 99/65 L 97 O2 Del Method 04/21/24 11:42 Room Air 04/21/24 11:31 04/21/24 08:37 Room Air 04/21/24 03:08 Room Air PG Care Time/CCT Total # of Minutes Spent Total Time Spent with Patient: Total time spent is greater than 50% in coordination of care (as documented) at patient's floor/unit and/or counseling patient: Coding Level of Care Code 96072 IN/OBS CONSULT LVL 4,60M Diagnoses Pyelonephritis N12
[2024-04-21] MEDS: POTASSIUM CHLORIDE CRTAB 20 MEQ TABCR PO STA (16:12)
[2024-04-21] MEDS: ONDANSETRON INJ 2 MG/ML 2 ML VIAL IV PRN (17:44)
[2024-04-21] MEDS: PROMETHAZINE 6.25 MG/50.25 ML BAG IV STA (21:09)
[2024-04-21] MEDS: ACETAMINOPHEN 1,000 MG/100 ML VIAL IV STA (21:15)
[2024-04-21 21:29] LABS: Hematocrit (blood only) 30.8 % (37.0-47.0); Hemoglobin 10.3 g/dl (12.0-16.0)
[2024-04-21 21:50] LABS: Troponin I High Sensitivity 6.2 pg/ml (0-14)
[2024-04-21 21:53] LABS: Partial Thromboplastin Ratio 1.3; Partial Thromboplastin Time 34 Seconds (21-31)
[2024-04-21] MEDS: NSS + 20MEQ KCL 20 MEQ/1,000 ML BAG IV ONE (22:01)
--- NOTE | 2024-04-21 22:27 | Communication Note ---
Date of Service: April 21, 2024 Patient had transient substernal discomfort which he attributed to abdominal fullness. Some SOB without cough symptoms. Relieved by IV Tylenol. EKG as per my interpretation rate 80, NSR, normal axis, T wave abnormalities septal leads CT angio chest yesterday negative for PE Troponin negative AP Atypical chest pain follow troponin Repeat CT angio chest to rule out PE if with recurrent discomfort or troponin elevation.
[2024-04-22 08:50] LABS: Basophils # (auto) 0.03 K/uL (0.00-0.20); Basophils % (auto) 0.3 %; Eosinophils # (auto) 0.01 K/uL (0.00-0.50); Eosinophils % (auto) 0.1 %; Hematocrit (blood only) 29.2 % (37.0-47.0); Hemoglobin 9.6 g/dl (12.0-16.0); Immature Granulocytes # (auto) 0.15 K/uL (0.01-0.20); Immature Granulocytes % (auto) 1.4 %; Lymphocytes % (auto) 14.7 %; Mean Corpuscular Hemoglobin 29.8 pg (25.0-34.0); Mean Corpuscular Hgb Conc 32.9 g/dL (32.0-36.0); Mean Corpuscular Volume 90.7 fL (80.0-100.0); Mean Platelet Volume 9.6 fL (9.4-12.4); Monocytes # (auto) 0.92 K/uL (0.11-0.59); Monocytes % (auto) 8.5 %; Neutrophils # (auto) 8.16 K/uL (1.40-6.50); Platelet Count 651 K/uL (130-400); RDW Coefficient of Variation 13.4 % (11.5-14.5); RDW Standard Deviation 44.8 fL (36.4-46.3); Red Blood Count 3.22 M/uL (4.20-5.40); White Blood Count 10.87 K/ul (4.8-10.8)
[2024-04-22 09:10] LABS: BUN Creatinine Ratio 10.7 (10-20); Calcium 8.3 mg/dl (8.6-10.3); Creatinine Clr Calc Pharmacy 115.2 ml/min; Potassium 3.9 mmol/L (3.5-5.1)
[2024-04-22 09:29] LABS: Ferritin 408.9 ng/ml (8-388)
[2024-04-22 09:30] LABS: Vitamin B12 969 pg/ml (180-914)
[2024-04-22 09:31] LABS: Folate (Folic Acid),Ser orPlas > 22.30 ng/ml (>5.38)
--- NOTE | 2024-04-22 12:01 | Hospitalist Progress Note ---
Date of Service April 22, 2024 Assessment & Plan (1) Pyelonephritis: (2) Pericardial effusion: (3) Hypokalemia: (4) Multiple sclerosis: (5) Depression: (6) Anxiety: Plan Ms. Harvey is a 44yoF admitted with history of spinal cord lesion, chronic pain who is admitted for bilateral pyelonephritis. #Acute bilateral Pyelonephritis Pt presenting with leukocytosis and fevers at home UA suggestive of infection, one urine Cx from 04/[address] abd//pelvis suggestive of bilateral pyelonephritis Has a history of klebsiella in the urine 05/29; sensitive to Cefepime Discontinue Cefepime--transition to ciprofloxacin Urology consult placed, appreciate further recs Supportive care Follow up urology for recurrent infections #Possible STI Pt noting concern for possible STI G/C negative on empiric Flagyl 500 mg PO BID x7 days discontinue doxy #Hypokalemia: replete as needed #Mild Hyponatremia *resolved Na of 133 IV fluids Continue to monitor #Chronic normocytic Anemia Iron deficiency noted, Follow up OP Continue PO iron #Reactive thrombocytosis platelets elevated Continue to monitor #Pericardial Effusion, trace Noted on chest CTA EF 60 to 65% with LV wall motion normal and no valvular abnormalities, trivial circumferential pericardial effusion, no cardiac tamponade Troponin negative denies chest pain CTM, encourage OP follow up #Spinal code lesions: Non 'official' diagnosis of MS Woke up one morning 5 years ago and was numb from her neck down Has an appt with PCP and Pain Management in May 2024 Currently taking Lyrica; reports it does not help much; #H/O cervical surgery: has a cervical cage placed years ago by Dr. bustillo[facility] Surgery was 3.5 years ago #Anxiety/Depression: Chronic Takes Hydroxyzine and Seroquel; continue #Chronic allergies: Takes Zyrtec; continue Code status: Full Code VTE Prophylaxis: Lovenox SQ Dispo: Home likely tomorrow Admission and Anticipated Discharge Date Admission Date: April 20, 2024 Subjective NAEO Reports feeling subjectively better no nausea, vomiting, or other acute concerns Physical Exam Constitutional: WD/WN, vitals as above Respiratory: normal respiratory effort, lungs clear to auscultation Cardiovascular: RRR, no murmur, no edema Results & Data Results & Data Vital Signs (Past 12 Hours) Vital Signs Temp Pulse Pulse Resp BP BP Pulse Ox 04/22/24 11:41 36.7 C 90 18 105/61 96 04/22/24 09:12 04/22/24 07:46 36.8 C 91 H 18 95/63 L 96 04/22/24 07:13 84 04/22/24 03:02 36.7 C 98 H 18 92/59 L 97 O2 Del Method 04/22/24 11:41 Room Air 04/22/24 09:12 Room Air 04/22/24 07:46 Room Air 04/22/24 07:13 04/22/24 03:02 Room Air Laboratory Results Short CBC 04/21/24 04/22/24 Range/Units 21:08 07:59 WBC 10.87 H (4.8-10.8) K/ul Hgb 10.3 L 9.6 L (12.0-16.0) g/dl Hct 30.8 L 29.2 L (37.0-47.0) % Plt Count 651 H (130-400) K/uL BMP 04/22/24 07:59 Sodium 139 Potassium 3.9 Chloride 110 H Carbon Dioxide 22 BUN 6 Creatinine 0.56 L Glucose 107 H Calcium 8.3 L Medications Administered Home Medications Medication Instructions Recorded Confirmed Last Taken acetaminophen 500 mg tablet 1,000 mg PO Q6H PRN Pain 05/19/19 04/20/24 Unknown (Tylenol Extra Strength) cetirizine 10 mg tablet (Zyrtec) 10 mg PO DAILY 05/19/19 04/20/24 05/18/19 20:00 docusate sodium 100 mg capsule 100 mg PO BID Constipation 05/19/19 04/20/24 05/18/19 20:00 ferrous sulfate 325 mg (65 mg 325 mg PO DAILY 05/19/19 04/20/24 05/18/19 20:00 iron) tablet (Iron (ferrous sulfate)) fluticasone propionate 50 2 spray intranasal DAILY PRN 05/19/19 04/20/24 05/18/19 20:00 mcg/actuation nasal Congestion spray,suspension (Flonase Allergy Relief) bisacodyl 5 mg tablet 5 mg PO DAILY PRN Constipation 05/23/23 04/20/24 Unknown cholecalciferol (vitamin D3) 50 50 mcg PO DAILY 05/23/23 04/20/24 Unknown mcg (2,000 unit) capsule (Vitamin D3) clindamycin phosphate 1 % topical 1 applic topical QAM PRN outbreaks 05/23/23 04/20/24 Unknown gel levonorgestrel 21 mcg/24 hr (up to 21 mcg intrauterine CONTINOUS 05/23/23 04/20/24 Unknown 8 years) 52 mg intrauterine device (Mirena) ondansetron HCl 4 mg tablet 4 mg PO Q6H PRN NAUSEA/VOMITING 05/23/23 04/20/24 Unknown tretinoin 0.025 % topical cream 1 applic topical HS PRN Outbreak 05/23/23 04/20/24 Unknown (Avita) polyethylene glycol 3350 17 17 g PO DAILY PRN Constipation 12/02/23 04/20/24 Unknown gram/dose oral powder (Miralax) pregabalin 100 mg capsule 100 mg PO BID #20 caps 03/10/24 04/20/24 Unknown cyclobenzaprine 10 mg tablet 10 mg PO TID PRN muscle spasms 04/20/24 04/20/24 Unknown hydroxyzine pamoate 50 mg capsule 50 mg PO UD PRN Anxiety/Sleep 04/20/24 04/20/24 Unknown ibuprofen 800 mg tablet 800 mg PO TID 04/20/24 04/20/24 Unknown quetiapine 300 mg tablet 300 mg PO HS 04/20/24 04/20/24 Unknown Active Medications Generic Name Dose Route Start Last Admin Trade Name Freq PRN Reason Stop Dose Admin Cetirizine HCl 10 mg 04/21/24 09:00 04/22/24 08:35 Cetirizine Hcl 10 Mg Tablet PO 05/21/24 08:59 10 mg DAILY BRADY Administration Ciprofloxacin 500 mg 04/22/24 12:00 04/22/24 13:30 Ciprofloxacin 500 Mg Tab PO 04/29/24 11:59 500 mg BID BRADY Administration Protocol Doxycycline Hyclate 100 mg 04/20/24 23:00 04/22/24 08:35 Doxycycline Hyclate 100 Mg Cap PO 04/27/24 22:59 100 mg BID BRADY Administration Enoxaparin Sodium 40 mg 04/21/24 09:00 04/22/24 08:39 Enoxaparin Inj 40 Mg/0.4 Ml Syr SQ 05/21/24 08:59 Not Given QAM [facility] Ferrous Sulfate 325 mg 04/21/24 12:00 04/22/24 11:57 Ferrous Sulfate 325 Mg Tab PO 05/21/24 11:59 325 mg DAILY@1200 BRADY Administration Hydroxyzine HCl 50 mg 04/20/24 14:59 04/21/24 22:59 Hydroxyzine Hcl 25 Mg Tab PO 05/20/24 14:58 50 mg TID PRN Administration Anxiety/Sleep Metronidazole 500 mg 04/20/24 23:00 04/22/24 15:35 Metronidazole 500 Mg Tab PO 04/27/24 22:59 500 mg Q8H BRADY Administration Protocol Ondansetron HCl 4 mg 04/21/24 17:21 04/22/24 12:36 Ondansetron Inj 2 Mg/Ml 2 Ml Vial IV 05/21/24 17:20 4 mg Q6H PRN Administration Nausea And Vomiting Pregabalin 100 mg 04/20/24 21:00 04/22/24 08:37 Pregabalin 100 Mg Cap PO 05/20/24 20:59 100 mg BID BRADY Administration Quetiapine Fumarate 300 mg 04/20/24 21:00 04/21/24 23:00 Quetiapine Fumarate 300 Mg Tablet PO 05/20/24 20:59 300 mg HS BRADY Administration
[2024-04-22] MEDS: CIPROFLOXACIN 500 MG TAB PO SCH (13:30)
[2024-04-22] MEDS: LORazepam 0.5 MG TAB PO PRN (21:01)
[2024-04-23 06:27] LABS: Basophils # (auto) 0.03 K/uL (0.00-0.20); Basophils % (auto) 0.4 %; Eosinophils # (auto) 0.01 K/uL (0.00-0.50); Eosinophils % (auto) 0.1 %; Hematocrit (blood only) 29.6 % (37.0-47.0); Hemoglobin 9.8 g/dl (12.0-16.0); Immature Granulocytes # (auto) 0.08 K/uL (0.01-0.20); Lymphocytes # (auto) 1.87 K/uL (1.20-3.40); Lymphocytes % (auto) 22.9 %; Mean Corpuscular Hemoglobin 30.3 pg (25.0-34.0); Mean Corpuscular Hgb Conc 33.1 g/dL (32.0-36.0); Mean Corpuscular Volume 91.6 fL (80.0-100.0); Mean Platelet Volume 9.3 fL (9.4-12.4); Monocytes # (auto) 0.78 K/uL (0.11-0.59); Monocytes % (auto) 9.5 %; Neutrophils # (auto) 5.41 K/uL (1.40-6.50); Neutrophils % (auto) 66.1 %; Platelet Count 697 K/uL (130-400); RDW Coefficient of Variation 13.5 % (11.5-14.5); RDW Standard Deviation 45.6 fL (36.4-46.3); Red Blood Count 3.23 M/uL (4.20-5.40); White Blood Count 8.18 K/ul (4.8-10.8)
[2024-04-23 06:44] LABS: BUN Creatinine Ratio 13.2 (10-20); Calcium 8.5 mg/dl (8.6-10.3); Creatinine Clr Calc Pharmacy 122.1 ml/min; Potassium 4.2 mmol/L (3.5-5.1)
--- NOTE | 2024-04-23 11:30 | Discharge Summary ---
Discharge Summary Date of Service April 23, 2024 Principal Dx & Hospital Course #1 = Principal Diagnosis (1) Pyelonephritis: (2) Pericardial effusion: (3) Hypokalemia: (4) Multiple sclerosis: (5) Depression: (6) Anxiety: Plan MsAndrzej Harvey is a 44yoF admitted with history of spinal cord lesion, chronic pain who is admitted for bilateral pyelonephritis. Patient evaluated by urology, no need for stenting. Patient responded well to antibiotics and remained afebrile. Patient continued on ciprofloaxcin, doxy/flagyl discontinued no vaginal drainage reported/ g/c negative Encouraged patient to follow up with PCP for pap smear and preventative management Patient verbalized understanding. 1 month refill on most medications sent, 10 day of lyrica sent. Patient set up with PCP appointment and encouraged to established specialist support with urology and neurology here. #Acute bilateral Pyelonephritis Pt presenting with leukocytosis and fevers at home UA suggestive of infection, one urine Cx from 04/[address] abd//pelvis suggestive of bilateral pyelonephritis Has a history of klebsiella in the urine 05/29; sensitive to Cefepime Discontinue Cefepime--transition to ciprofloxacin Urology consult placed, appreciate further recs Supportive care Follow up urology for recurrent infections #Possible STI Pt noting concern for possible STI G/C negative discontinue doxy #Hypokalemia: replete as needed #Mild Hyponatremia *resolved Na of 133, 140 on d/c #Chronic normocytic Anemia Iron deficiency noted, Follow up OP Continue PO iron #Reactive thrombocytosis platelets elevated Continue to monitor #Pericardial Effusion, trace Noted on chest CTA EF 60 to 65% with LV wall motion normal and no valvular abnormalities, trivial circumferential pericardial effusion, no cardiac tamponade Troponin negative denies chest pain CTM, encourage OP follow up #Spinal code lesions: Non 'official' diagnosis of MS Woke up one morning 5 years ago and was numb from her neck down Has an appt with PCP and Pain Management in May 2024 Currently taking Lyrica; reports it does not help much; #H/O cervical surgery: has a cervical cage placed years ago by Dr[facility] bustillo' at [facility] Surgery was 3.5 years ago #Anxiety/Depression: Chronic Takes Hydroxyzine and Seroquel; continue #Chronic allergies: Takes Zyrtec; continue Notes For Next Care Provider Medication Changes From Visit Ciprofloxacin BID x 7 more days Admission HPI Per Admitting Provider Ms. Harvey is a 44 year old female that presented to the ED with complaints of not feeling well since last saturday. She reports having a fever on and off, without an actual recorded temperature, and has not been able to keep anything down without much of an appetite. She reports feeling really thi rsty and her stomach feels "tight" generally throughout her whole abdomen. She reports polyuria that started on Saturday but reports that she stopped taking her medication for OAB a few months ago. She reports a PMH that includes Patient does have a history of klebsiella in her urine from May 2023 that is sensitive to Cefepime. She reports that she has participated in unprotected sexual relations with a man over the past few weeks without any protection. She denies oral or anal encounter. She denies any malodor or color discharge. In the ED today, Head CT negative for ICH, midline shift, or SDH. Chest CTA was performed without PE, but incidentally found pericardial effusion and pleural effusion. No lymphadeopathy or signs of PNA were noted. CTAP suggestive of acute bilateral pyelonephritis. No renal abscess. No hydronephrosis. Bladder wall thickening suggestive of cystitis. A small amount of fluid within the pelvis. Low-attenuation right adnexal lesions which favor ovarian cysts or follicles.No bowel obstruction. Normal appendix. Leukocytosis noted 2.96; neutrophil count 19.47, hypokalemia 3.4. Lactate, Mg+. HCG negative. She denies Dodd, dizziness, lightheadedness, chest pain, palpitations, SOB, falls. She just moved into a new apartment last Saturday ([place]). Intermittent tobacco use, denies alcohol use, intermittent marijuana use. On examination, she has significant bilateral CVA tenderness and has abdominal bloating with generalized tenderness with AX4 bowel sounds. Patient will be admitted for further evaluation and management of her symptoms. We will obtain a urine culture, continue IV antibiotics for now, obtain a resting ECHO given the pericardial effusion, and will obtain a blader scan and have the patient evaluated by Urology. Please see A/P for further details. Admission Exam Per Admitting Provider Neuro: AAOx4, PERRLA, no aphagia, memory changes, CNII-XII grossly intact HEENT: head normocephalic, moist mucus membranes CV: S1/S2 (Grade IV/ LSB murmur), (-)G/R, (-) edema, cap refill < 3 seconds Resp: Lungs decreased in all lung coleman without adventitious lung sounds. On RA GI: Abdomen bloated/larger/S/ND, (+) abdominal tenderness, Ax4 bowel sounds, (+) B/L CVA tenderness Musculoskeletal: 5/5 B/L UE strength, 5/5 B/L LE strength. No gait disturbance Skin: (-) rashes , (-) erythema. Psych: euthymic mood Discharge Exam Constitutional WD/WN, vitals as above Respiratory normal respiratory effort, lungs clear to auscultation Cardiovascular RRR, no murmur, no edema Updated Medication List Medication Instructions Recorded Confirmed Type acetaminophen 500 mg tablet 1,000 mg PO Q6H PRN Pain 05/19/19 04/20/24 History (Tylenol Extra Strength) docusate sodium 100 mg capsule 100 mg PO BID Constipation 05/19/19 04/20/24 History bisacodyl 5 mg tablet 5 mg PO DAILY PRN Constipation 05/23/23 04/20/24 History cholecalciferol (vitamin D3) 50 50 mcg PO DAILY 05/23/23 04/20/24 History mcg (2,000 unit) capsule (Vitamin D3) clindamycin phosphate 1 % topical 1 applic topical QAM PRN outbreaks 05/23/23 04/20/24 History gel levonorgestrel 21 mcg/24 hr (up to 21 mcg intrauterine CONTINOUS 05/23/23 04/20/24 History 8 years) 52 mg intrauterine device (Mirena) tretinoin 0.025 % topical cream 1 applic topical HS PRN Outbreak 05/23/23 04/20/24 History (Avita) polyethylene glycol 3350 17 17 g PO DAILY PRN Constipation 12/02/23 04/20/24 History gram/dose oral powder (Miralax) cetirizine 10 mg tablet (Zyrtec) 10 mg PO DAILY 30 days #30 tabs 04/23/24 Rx ciprofloxacin HCl 500 mg tablet 500 mg PO BID 7 days #13 tabs 04/23/24 Rx cyclobenzaprine 10 mg tablet 10 mg PO TID PRN muscle spasms 30 04/23/24 Rx days #90 tabs ferrous sulfate 325 mg (65 mg 325 mg PO DAILY 30 days #30 tabs 04/23/24 Rx iron) tablet (Iron (ferrous sulfate)) fluticasone propionate 50 2 spray intranasal DAILY PRN 04/23/24 Rx mcg/actuation nasal Congestion 0 days #18.2 mL spray,suspension (Flonase Allergy Relief) hydroxyzine pamoate 50 mg capsule 50 mg PO UD PRN Anxiety/Sleep #30 04/23/24 Rx caps ondansetron HCl 4 mg tablet 4 mg PO Q6H PRN NAUSEA/VOMITING 04/23/24 Rx #30 tabs pregabalin 100 mg capsule 100 mg PO BID #20 caps 04/23/24 Rx quetiapine 300 mg tablet 300 mg PO HS 30 days #30 tabs 04/23/24 Rx Hospital Stay Data Consultations 04/20/24 13:59 ED Decision to Admit Stat 04/20/24 14:09 Consult Urology Routine Diagnostic Imagining Performed 04/20/24 11:37 CT abd pelvis IV con only Stat CT angio chest PE protocol Stat CT head/brain wo con Stat Pending Results Patient Have Any Pending Studies at Discharge: No Discharge Instructions Given to Patient (Per Discharging Provider) You were admitted for pyelonephritis, or urinary infection that went up to the kidneys. You were treated with IV antibiotics then transitioned to oral antibiotics. Please continue to take the following; -Ciprofloxacin 500mg two times a day until course complete You were also noted to be iron deficient, Please consider a daily vitamin or iron supplement. Total Time Total Time Spent Total Time Spent (In Minutes): 45
[2024-04-23 11:34] VITALS: PULSE 84; RESP 18; TEMP 97.7; O2SAT 96
[2024-04-23 11:40] VITALS: BP 108/69
--- NOTE | 2024-04-23 22:18 | Electrocardiogram Report ---
Test Reason : Blood Pressure : */* mmHG Vent. Rate : 77 BPM Atrial Rate : 77 BPM P-R Int : 154 ms QRS Dur : 86 ms QT Int : 374 ms P-R-T Axes : 64 44 34 degrees QTcB Int : 423 ms Normal sinus rhythm Possible Anterior infarct (cited on or before 10-Mar-2024) Abnormal ECG When compared with ECG of 21-Apr-2024 20:46, No significant change was found Confirmed by Natan Darby ([id number]) on 04/23/2024 10:17:39 PM Referred By: REFERRED SELF Confirmed By: Natan Darby
--- NOTE | 2024-04-23 22:18 | Electrocardiogram Report ---
Test Reason : Blood Pressure : */* mmHG Vent. Rate : 79 BPM Atrial Rate : 79 BPM P-R Int : 152 ms QRS Dur : 90 ms QT Int : 388 ms P-R-T Axes : 62 44 39 degrees QTcB Int : 444 ms Normal sinus rhythm Cannot rule out Anterior infarct (cited on or before 10-Mar-2024) Abnormal ECG When compared with ECG of 10-Mar-2024 07:51, No significant change was found Confirmed by Natan Darby ([id number]) on 04/23/2024 10:17:28 PM Referred By: REFERRED SELF Confirmed By: Natan Darby
[2024-04-24 08:53] LABS: Marijuana Quant, GCMS Urine 847 ng/mL (<5)
== END 2024-04-23 13:21 | disposition home or self-care (01) | DRG 690 ==
LOC: ED 09:58 → EDINP 18:07 → SUATTDRO 18:07 → 2N 23:05
DX: E87.1 Hypo-osmolality and hyponatremia; Z88.8 Allergy status to other drugs, medicaments and biological substances; E87.6 Hypokalemia; N32.81 Overactive bladder; Z88.6 Allergy status to analgesic agent; Z96.89 Presence of other specified functional implants; I31.39 Other pericardial effusion (noninflammatory); F17.210 Nicotine dependence, cigarettes, uncomplicated; F32.A Depression, unspecified; F41.9 Anxiety disorder, unspecified; D75.838 Other thrombocytosis; B96.20 Unspecified Escherichia coli [E. coli] as the cause of diseases classified elsewhere; D64.9 Anemia, unspecified; R07.2 Precordial pain; Z97.5 Presence of (intrauterine) contraceptive device; Z72.51 High risk heterosexual behavior; N10 Acute pyelonephritis; Z79.899 Other long term (current) drug therapy; G35 Multiple sclerosis; E61.1 Iron deficiency; Z98.890 Other specified postprocedural states